=== PATIENT | male | born 1965 | race Caucasian/White ===

== ENCOUNTER → 2019-11-16 | Outpatient (CLI) | payer BC ==
--- NOTE | 2019-11-16 17:18 | KCIC ---
EXAM: MRI Lumbar Spine without IV contrast INDICATION: Lumbosacral neuritis. Patient has low back pain with right leg pain, numbness and tingling for the past 3 1/2 weeks with no known injury.. TECHNIQUE: Sagittal T1-w, T2-w, and STIR images, and axial T1-w and T2-w images of the lumbar spine. COMPARISON: None FINDINGS: The lowest fully formed disc is referred to as the L5-S1 level. ALIGNMENT: Alignment is within normal limits. OSSEOUS: No evidence of fracture or bone destruction. Marrow signal is within normal limits. CONUS MEDULLARIS & CAUDA EQUINA: The conus medullaris is in normal position. The conus medullaris and cauda equina are intrinsically normal. SOFT TISSUES: Unremarkable. DISC LEVELS: T12-L1: Unremarkable. L1-L2: Unremarkable. L2-L3: Unremarkable. L3-L4: Diffuse disc bulge and mild bilateral facet hypertrophy results in mild flattening of the ventral thecal sac with an AP diameter of 1.0 cm. The loss of height of the disc level results in moderate bilateral foraminal narrowing and mild bilateral lateral recess narrowing. L4-L5: Diffuse disc desiccation and loss of height is present, resulting in moderate narrowing of the left neural foramen. The central canal remains patent but the right neural foramen shows a focal right foraminal and extraforaminal protrusion with tissue showing mild signal hyperintensity on the STIR sequence, intermediate signal on the T2-weighted sequence and hypointensity on T1-weighted imaging effacing the perineural fat in the right foramen. This could reflect the presence of a perineural sleeve cyst or extruded disc fragment contributing to severe narrowing of the right foramen and some mass effect on the slightly enlarged extraforaminal right L4 nerve root, best illustrated on the axial T1 weighted images 16 through 19 of series 5. L5-S1: Diffuse disc bulge with loss of height and bilateral facet hypertrophy results in moderate bilateral foraminal narrowing. The central canal remains patent. The right nerve root abuts the protruded disc in the right foramen. There is moderate to severe bilateral lateral recess narrowing. IMPRESSION: 1. Multilevel lumbar spinal degenerative spondylosis, resulting in varying degrees of predominately foraminal narrowing, most conspicuously at the right L4-L5 and L5-S1 foramina as described. 2. Recommend postcontrast imaging of the lumbar spine with thin slice images through the L4-L5 disc space to better characterize the lesion in the right L4-L5 neural foramen and help exclude a nerve sheath tumor or other diagnostic possibility as discussed. Electronically signed by: Juanita Solo MD (11/16/2019 5:15 PM) [id number]
== END | disposition home or self-care (01) ==
LOC: KCIC MRI 16:04
PROVIDERS: ATTEND Physician Assistant
DX: M51.17 Intervertebral disc disorders with radiculopathy, lumbosacral region (principal); M48.07 Spinal stenosis, lumbosacral region; M47.26 Other spondylosis with radiculopathy, lumbar region; M89.38 Hypertrophy of bone, other site
CPT/HCPCS: 72148

== ENCOUNTER → 2020-02-17 | Outpatient (CLI) | payer BC ==
[2020-02-17] VITALS (9 sets, daily range): BP systolic 105–121; BP diastolic 56–86
[~2020-02-17] VITALS: Ht 170.2 cm; Wt 83.9 kg
[~2020-02-17] MED LIST: LIDOCAINE WITH 8.4% SOD BICARB 3 ML DISP.SYRIN. IJ ONE; LIDOCAINE WITH 8.4% SOD BICARB 3 ML DISP.SYRIN. ONE; LOSA100T14 PO; LOSA1TAB22 PO; MIDAZOLAM HCL/PF 2 MG/2 ML VIAL. IV ONE; MIDAZOLAM HCL/PF 2 MG/2 ML VIAL. ONE; fentaNYL PF VIAL 100 MCG/2 ML VIAL IV ONE; fentaNYL PF VIAL 100 MCG/2 ML VIAL ONE
[2020-02-17 07:45] LABS: BASO % 0 % (0-3); EOS # 0.3 x10^3/uL (0.0-0.7); EOS % 2 % (0-3); HEMATOCRIT 48.1 % (39.0-53.0); HEMOGLOBIN 16.6 g/dL (13.0-17.5); LYMPH % 25 % (24-48); MEAN CORPUSCULAR HEMOGLOBIN 30 pg (25-35); MEAN CORPUSCULAR HGB CONC 34 g/dL (31-37); MEAN CORPUSCULAR VOLUME 87 fL (79-100); MONO # 1.4 x10^3/uL (0.0-1.1); MONO % 9 % (0-9); NEUT # 10.1 x10^3/uL (1.8-7.7); NEUT % 64 % (31-73); PLATELET COUNT 317 x10^3/uL (140-400); RED BLOOD COUNT 5.54 x10^6/uL (4.30-5.70); WHITE BLOOD COUNT 15.7 x10^3/uL (4.0-11.0)
[2020-02-17 08:10] LABS: PROTHROMBIN TIME PATIENT 12.3 SEC (11.7-14.0)
--- NOTE | 2020-02-17 10:18 | PDOC ---
MODERATE SEDATION ASSESSMENT RISKS/ALTERNATIVES Risks/Alternatives Risks and alternatives of this type of sedation and procedure discussed with: RISK/ALTERNATIVES: Patient H & P ON CHART H & P H & P on chart and reviewed for co-morbid conditions and appropriate labs. H&P ON CHART: Yes STATUS PREG STATUS ASSESSED: Yes MEDS/ALLERGIES REVIEWED Meds/Allergies Reviewed Medications and Allergies including time and route of recently administered narcotics and sedatives. MEDS/ALLERGIES REVIEWED: Yes ASA RATING ASA RATING: II AIRWAY ASSESSMENT Airway Assessment Airway patency, oral function limitations, presence of caps, crowns, dentures, partials, and ability to extend neck assessed. AIRWAY ASSESSMENT: Yes MALLAMPATI SCORE MALLAMPATI SCORE: II PRE-SEDATION ASSESSMENT PRE-SEDATION ASSESSMENT: Yes KANNAN ROSARIO MD Feb 17, 2020 10:18
--- NOTE | 2020-02-17 10:20 | NUR ---
Discharge Note: RUKHSANA SHARPE Discharge instructions and discharge home medications reviewed with Patient and a copy given. All questions have been answered and understanding verbalized. The following instructions and handouts were given: moderate sedation and post bone marrow biopsy Discontinued lines and drains: Peripheral IV intact. Patient discharged to Home or Self Care withFamily Membera Wheelchair
--- NOTE | 2020-02-17 15:36 | RAD ---
CT-guided bone marrow biopsy. 02/17/2020 1:32 PM Indication: LEUKOCYTOSIS Discussion: The risks and benefits of the procedure, including but not limited to, bleeding and infection were discussed patient. Informed consent was obtained. The patient was brought to the CT scanner and placed in the prone position. A timeout procedure was performed. High Density Finishing Operator CT imaging of the pelvis demonstrated left ilium amenable to bone marrow biopsy. The overlying soft tissues were prepped and draped using maximum sterile barrier technique. 1% lidocaine without epinephrine was administered for local anesthesia. Under intermittent CT guidance, an OncControl needle was advanced into the bone marrow of the left iliac crest. 2 Aspirates and 1 core biopsy samples were obtained. Samples were delivered to pathology was present at the time of procedure. The needle was removed and manual pressure held to achieve hemostasis. No immediate complications were identified. The procedure was performed under conscious sedation including continuous cardiopulmonary monitoring via dedicated sedation nurse. Sedation time: 20 minutes Impression: Successful CT-guided bone marrow biopsy of the left iliac crest . PQRS Compliance Statement: One or more of the following individualized dose reduction techniques were utilized for this examination: 1. Automated exposure control 2. Adjustment of the mA and/or kV according to patient size 3. Use of iterative reconstruction technique
== END ==
LOC: INTRAD 06:45
PROVIDERS: ATTEND Internal Medicine Hematology & Oncology
DX: D72.829 Elevated white blood cell count, unspecified (principal); Z79.01 Long term (current) use of anticoagulants; Z79.899 Other long term (current) drug therapy
CPT/HCPCS: 36415; 38222; 77012; 85025; 85610; 85730; 88184; 88185; 88237; J2250; J3010; J3490

== ENCOUNTER → 2020-03-05 | Outpatient (CLI) | payer BC ==
[2020-02-17 10:00] VITALS: BP 117/73
[~2020-03-05] MED LIST changes: +GADOTERATE 5 MMOL/10ML VIAL. IVP ONE; -LIDOCAINE WITH 8.4% SOD BICARB 3 ML DISP.SYRIN. IJ ONE; -LIDOCAINE WITH 8.4% SOD BICARB 3 ML DISP.SYRIN. ONE; -MIDAZOLAM HCL/PF 2 MG/2 ML VIAL. IV ONE; -MIDAZOLAM HCL/PF 2 MG/2 ML VIAL. ONE; -fentaNYL PF VIAL 100 MCG/2 ML VIAL IV ONE; -fentaNYL PF VIAL 100 MCG/2 ML VIAL ONE
--- NOTE | 2020-03-05 11:55 | KCIC ---
EXAMINATION: Magnetic resonance imaging (MRI) of the lumbar spine with and without contrast 03/05/2020 9:30 AM HISTORY: Nerve sheath tumor TECHNIQUE: Multiplanar multi-weighted MRI of the lumbar spine was performed with and without intravenous contrast using the standard lumbar spine protocol. Contrast information: Gadolinium based contrast. COMPARISON: MRI lumbar spine 11/16/2019 FINDINGS: The alignment of the lumbar spine is normal. Vertebral bodies demonstrate normal signal intensity on all sequences. There are no compression fractures. The conus medullaris terminates at the level of L1. The distal spinal cord signal intensity is normal. There is disc desiccation and mild disc height loss at L4-L5 and L5-S1. Annular fissures identified at L5-S1 with vacuum disc phenomenon . Limited views of the abdomen and pelvis show no soft tissue abnormality. The aorta is normal. No suspicious enhancement is identified. L1-L2: The disc is normal in configuration. There is no facet arthropathy. There is no neuroforaminal stenosis. There is no spinal canal stenosis. L2-L3: The disc is normal in configuration. There is no facet arthropathy. There is no neuroforaminal stenosis. There is no spinal canal stenosis. L3-L4: The disc is normal in configuration. There is no facet arthropathy. There is no neuroforaminal stenosis. There is no spinal canal stenosis. L4-L5: Mild disc bulge asymmetric to the right with right far lateral disc protrusion, stable. Mild facet arthropathy. Mild to moderate bilateral neuroforaminal stenosis. No significant spinal canal stenosis. L5-S1: Disc bulge with central disc protrusion. There is mild facet arthropathy. There is moderate neuroforaminal stenosis. There is no spinal canal stenosis. IMPRESSION: Mild degenerative changes of the lumbar spine as described in detail above. No suspicious peripheral nerve sheath tumor identified on provided images. Findings at L4-L5 vertebral level most favor a right far lateral disc protrusion which could affect the exited nerve. Electronically signed by: Sienna Izquierdo MD (03/05/2020 11:53 AM) [facility]
== END | disposition home or self-care (01) ==
LOC: KCIC MRI 09:09
PROVIDERS: ATTEND Psychiatry & Neurology Neurology with Special Qualifications in Child Neurology
DX: M47.817 Spondylosis without myelopathy or radiculopathy, lumbosacral region (principal); M54.16 Radiculopathy, lumbar region; D49.2 Neoplasm of unspecified behavior of bone, soft tissue, and skin; Q05.7 Lumbar spina bifida without hydrocephalus; M99.83 Other biomechanical lesions of lumbar region; M51.27 Other intervertebral disc displacement, lumbosacral region
CPT/HCPCS: 72158; A9575

== ENCOUNTER 2020-06-30 23:11 | Inpatient (IN) | payer BC ==
[~2020-06-30] VITALS: Ht 170.2 cm; Wt 96.1 kg
[~2020-06-30 23:11] MED LIST changes: -GADOTERATE 5 MMOL/10ML VIAL. IVP ONE
[2020-06-30 23:30] VITALS: BP 117/73
[2020-07-01] MEDS ORDERED: ONDANSETRON PF 4 MG/2 ML VIAL. IVP PRN
[2020-07-01] MEDS ORDERED: ACETAMINOPHEN 325 MG TABLET. PO PRN
[2020-07-01] MEDS ORDERED: MAG HYDROX/ALUMINUM HYD/SIMETH 30 ML ORAL.SUSP PO PRN
[2020-07-01] MEDS ORDERED: BISACODYL 10 MG SUPP.RECT. PR PRN
[2020-07-01] MEDS ORDERED: traMADol 50 MG TABLET PO PRN
[2020-07-01] MEDS ORDERED: IBUPROFEN 400 MG TABLET. PO PRN
[2020-07-01] MEDS ORDERED: MAGNESIUM HYDROXIDE 2,400 MG/30 ML ORAL.SUSP. PO PRN
[2020-07-01] MEDS ORDERED: MORPHINE SULFATE 2 MG/ML VIAL. IV PRN ×2
[2020-07-01] MEDS ORDERED: CALCIUM CARBONATE 500 MG TAB.CHEW PO PRN
[2020-07-01] MEDS ORDERED: ENOXAPARIN 40 MG/0.4 ML SYRINGE. SQ SCH
[2020-07-01] MEDS ORDERED: ZOLPIDEM 5 MG TABLET. PO PRN
[2020-07-01] MEDS ORDERED: fentaNYL PF VIAL 100 MCG/2 ML VIAL IVP PRN
[2020-07-01] MEDS ORDERED: LABETALOL 20 MG/4 ML DISP.SYRIN. IVP PRN (00:15)
[2020-07-01] MEDS ORDERED: ENALAPRILAT 1.25 MG/ML VIAL. IVP PRN (00:15)
[2020-07-01 02:09] LABS: BASO # 0.1 x10^3/uL (0.0-0.2); BASO % 1 % (0-3); EOS # 0.1 x10^3/uL (0.0-0.7); EOS % 1 % (0-3); HEMATOCRIT 41.3 % (39.0-53.0); HEMOGLOBIN 13.9 g/dL (13.0-17.5); LYMPH # 4.7 x10^3/uL (1.0-4.8); LYMPH % 27 % (24-48); MEAN CORPUSCULAR HEMOGLOBIN 29 pg (25-35); MEAN CORPUSCULAR HGB CONC 34 g/dL (31-37); MEAN CORPUSCULAR VOLUME 87 fL (79-100); MONO % 6 % (0-9); NEUT # 11.3 x10^3/uL (1.8-7.7); NEUT % 66 % (31-73); PLATELET COUNT 258 x10^3/uL (140-400); RED BLOOD COUNT 4.76 x10^6/uL (4.30-5.70); RED CELL DISTRIBUTION WIDTH 13.9 % (11.5-14.5); WHITE BLOOD COUNT 17.2 x10^3/uL (4.0-11.0)
[2020-07-01 02:35] LABS: ALBUMIN 3.3 g/dL (3.4-5.0); ALBUMIN/GLOBULIN RATIO 1.1 (1.0-1.7); CALCIUM 8.6 mg/dL (8.5-10.1); CREATININE 1.3 mg/dL (0.7-1.3); GFR 57.5; POTASSIUM 3.1 mmol/L (3.5-5.1); TOTAL BILIRUBIN 0.3 mg/dL (0.2-1.0); TOTAL PROTEIN 6.3 g/dL (6.4-8.2)
[2020-07-01 03:00] VITALS: BP 107/77
[2020-07-01] MEDS: HYDROCORTISONE 1% TOPICAL CREAM 30GM TUBE. TP PRN ×2 (04:14→18:27)
[2020-07-01 06:05] LABS: BASO # 0.2 x10^3/uL (0.0-0.2); BASO % 1 % (0-3); EOS # 0.2 x10^3/uL (0.0-0.7); EOS % 1 % (0-3); HEMATOCRIT 42.3 % (39.0-53.0); HEMOGLOBIN 14.2 g/dL (13.0-17.5); LYMPH # 5.2 x10^3/uL (1.0-4.8); LYMPH % 32 % (24-48); MEAN CORPUSCULAR HEMOGLOBIN 29 pg (25-35); MEAN CORPUSCULAR HGB CONC 34 g/dL (31-37); MEAN CORPUSCULAR VOLUME 87 fL (79-100); MONO % 6 % (0-9); NEUT # 9.9 x10^3/uL (1.8-7.7); NEUT % 60 % (31-73); PLATELET COUNT 258 x10^3/uL (140-400); RED BLOOD COUNT 4.88 x10^6/uL (4.30-5.70); RED CELL DISTRIBUTION WIDTH 14.2 % (11.5-14.5); WHITE BLOOD COUNT 16.5 x10^3/uL (4.0-11.0)
[2020-07-01 06:17] LABS: CALCIUM 8.4 mg/dL (8.5-10.1); CREATININE 1.2 mg/dL (0.7-1.3); GFR 63.1; POTASSIUM 3.3 mmol/L (3.5-5.1)
[2020-07-01 06:24] LABS: CHOLESTEROL/HDL RATIO 4.7
[2020-07-01] MEDS ORDERED: IV NORMAL SALINE 1000ML BAG 1,000 ML IV ONE (06:30)
[2020-07-01] MEDS ORDERED: HEPARIN for IV BOLUS 10,000 UNIT/10 ML VIAL. IV PRN (06:45)
[2020-07-01] MEDS ORDERED: PANT40TA77 PO (06:56)
[2020-07-01 07:00] VITALS: BP 133/85
--- NOTE | 2020-07-01 07:28 | PDOC1 ---
History and Physical Date of Admission Date of Admission DATE: 07/01/20 TIME: 07:28 Identification/Chief Complaint Chief Complaint Chest pain Source Source: Patient History of Present Illness History of Present Illness Mr Bradley is a 54 yo M w/ PMHx smoker, obesity who presents for substernal chest pain. Onset was 06/30 in the morning while at rest without any known provocation/inciting event and/or trauma. Nothing known makes better or worse. Pain is substernal, 9 out of 10 in severity, and radiates to left jaw. Describes it as a dull crushing pressure. Patient reports intermittent occurrences of a different type of chest pain for past 3 months. He has been getting this worked up in outpatient setting with primary care physician and recently had a EGD 06/29/2020 for which he tested negative for Covid and ultimately had a negative EGD. But did have PUD treated 1 month prior with h. pylori testing positive. He has never had a cardiac stress test previously. He smokes, is being treated for GERD and hypertension, and has a significant family history of cardiac disease. Patient does disclose that in the past 6 months he has gained approximately 25 to 30 pounds. He has had increased dyspnea with exertion and has been sleeping propped up recently as he often feels that he is gasping for air in the middle of the night. Admits diaphoresis, lightheadedness, chills, shortness of breath during chest pain episodes, intermittent left jaw and upper extremity numbness, nausea, and palpitations. Denies fever, falls, abdominal pain, vomiting or diarrhea, changes in bladder or bowel function, no hemoptysis, no excessive alcohol or any illicit drug use, no long distance travel. 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 EKG at 1825 interpreted by vt rate [address] depressions in lead I, V4, implying inferior and lateral strain. Initial troponin at 1705 was 2.040, second troponin at 0115 was 11.68 IV access obtained, x1 sublingual nitro administered with significant relief of pain decreasing from 9/10 in severity to 2/10 in severity 324 mg aspirin given, 1 mg per kilogram Lovenox and and 40 mg IV Lasix administration prior to transfer to [place]. Given 1 g Rocephin and 500 mg azithromycin for suspected pulmonary infection Seen bedside at [facility] after transfer from [place]. He is still having some chest pain, feels it is substernal 10/10. Past Surgical History Past Surgical History: No pertinent history Family History Family History: Coronary Artery Disease (Mother) Family History: Parent (Father - DM, ESRD; Mother - CAD) Social History Smoke: 1 pack per day ALCOHOL: rare Drugs: None Current Medications Current Medications Current Medications Azithromycin (Zithromax) 250 mg DAILY PO ; Start 07/01/20 at 09:00; Stop 07/04/20 at 09:00 Ceftriaxone Sodium (Rocephin) 1 gm Q24H IVP ; Start 07/01/20 at 09:00; Stop 07/04/20 at 09:00 Tramadol HCl (Ultram) 50 mg PRN Q6HRS PRN PO PAIN; Start 07/01/20 at 00:00 Ondansetron HCl (Zofran) 4 mg PRN Q6HRS PRN IVP NAUSEA/VOMITING; Start 07/01/20 at 00:00 Al Hydroxide/Mg Hydroxide (Mylanta Plus Xs) 30 ml PRN Q3HRS PRN PO HEARTBURN / GAS; Start 07/01/20 at 00:00 Calcium Carbonate/ Glycine (Tums) 500 mg PRN Q3HRS PRN PO UPSET STOMACH; Start 07/01/20 at 00:00 Zolpidem Tartrate (Ambien) 5 mg PRN QHS PRN PO INSOMNIA, MAY REPEAT IN 1HR; Start 07/01/20 at 00:00 Morphine Sulfate (Morphine Sulfate) 1 mg PRN Q1HR PRN IV PAIN; Start 07/01/20 at 00:00 Morphine Sulfate (Morphine Sulfate) 2 mg PRN Q1HR PRN IV PAIN; Start 07/01/20 at 00:00 Acetaminophen (Tylenol) 650 mg PRN Q6HRS PRN PO Headaches, Temp > 101.5F; Start 07/01/20 at 00:00 Ibuprofen (Motrin) 400 mg PRN Q6HRS PRN PO MILD PAIN 1-3; Start 07/01/20 at 00:00 Magnesium Hydroxide (Milk Of Magnesia) 2,400 mg PRN Q12HR PRN PO CONSTIPATION; Start 07/01/20 at 00:00 Bisacodyl (Dulcolax Supp) 10 mg PRN DAILY PRN GA CONSTIPATION; Start 07/01/20 at 00:00 Enoxaparin Sodium (Lovenox 40mg Syringe) 40 mg Q24H SQ Last administered on 07/01/20at 01:25; Start 07/01/20 at 00:00; Stop 07/01/20 at 06:21; Status DC Fentanyl Citrate (Fentanyl 2ml Vial) 50 mcg PRN Q2HR PRN IVP PAIN; Start 07/01/20 at 00:00 Non-Formulary Medication (Losartan/ Hydrochlorothiazide (Losartan-Hctz 100-25 Mg Tab)) 1 tab DAILY PO ; Start 07/01/20 at 09:00; Status UNV Labetalol HCl (Normodyne Iv Push) 20 mg PRN Q2HR PRN IVP HYPERTENSION; Start 07/01/20 at 00:15 Losartan Potassium (Cozaar) 100 mg DAILY PO ; Start 07/01/20 at 09:00 Enalaprilat (Vasotec Inj) 1.25 mg PRN Q6HRS PRN IVP HYPERTENSION; Start 07/01/20 at 00:15 Hydrochlorothiazide (Hydrodiuril) 25 mg DAILY PO ; Start 07/01/20 at 09:00 Hydrocortisone (Cortaid) 1 flakito TID TP ; Start 07/01/20 at 09:00; Stop 07/01/20 at 02:45; Status DC Hydrocortisone (Cortaid) 1 flakito PRN TID PRN TP ITCHING Last administered on 07/01/20at 04:14; Start 07/01/20 at 02:45 Enoxaparin Sodium (Lovenox 100mg Syringe) 100 mg Q12HR SQ ; Start 07/01/20 at 09:00; Stop 07/01/20 at 06:52; Status DC Sodium Chloride 1,000 ml @ 1,000 mls/hr 1X ONCE IV ; Start 07/01/20 at 06:30; Stop 07/01/20 at 07:29 Heparin Sodium/ Dextrose 250 ml @ 0 mls/hr CONT PRN IV PER PROTOCOL; Start 07/01/20 at 07:45 Heparin Sodium (Porcine) (Heparin Sodium) 2,500 unit PRN Q6HRS PRN IV FOR UFH LEVEL LESS THAN 0.2; Start 07/01/20 at 06:45 Active Scripts Active Reported Pantoprazole Sodium (Pantoprazole Sodium) 40 Mg Tablet.dr 40 Mg PO BIDAC Losartan-Hctz 100-25 Mg Tab (Losartan/Hydrochlorothiazide) 1 Each Tablet 1 Tab PO DAILY Allergies Allergies: Coded Allergies: No Known Drug Allergies (Unverified , 02/17/20) ROS General: No: Chills, Night Sweats, Fatigue, Malaise, Appetite, Other PSYCHOLOGICAL ROS: No: Anxiety, Behavioral Disorder, Concentration difficultie, Decreased libido, Depression, Disorientation, Hallucinations, Hostility, Irritablity, Memory difficulties, Mood Swings, Obsessive thoughts, Physical abuse, Sexual abuse, Sleep disturbances, Suicidal ideation, Other Eyes: No Blurry vision, No Decreased vision, No Double vision, No Dry eyes, No Excessive tearing, No Eye Pain, No Itchy Eyes, No Loss of vision, No Photophobia, No Scotomata, No Uses contacts, No Uses glasses, No Other HEENT: No: Heacaches, Visual Changes, Hearing change, Nasal congestion, Nasal discharge, Oral lesions, Sinus pain, Sore Throat, Epistaxis, Sneezing, Snoring, Tinnitus, Vertigo, Vocal changes, Other ALLERGY AND IMMUNOLOGY: No: Hives, Insect Bite Sensitivity, Itchy/Watery Eyes, Nasal Congestion, Post Nasal Drip, Seasonal Allergies, Other Hematological and Lymphatic: No: Bleeding Problems, Blood Clots, Blood Transfusions, Brusing, Night Sweats, Pallor, Swollen Lymph Nodes, Other ENDOCRINE: No: Breast Changes, Galactorrhea, Hair Pattern Changes, Hot Flashes, Malaise/lethargy, Mood Swings, Palpitations, Polydipsia/polyuria, Skin Changes, Temperature Intolerance, Unexpected Weight Changes, Other Breast: No New/Changing Breast Lumps, No Nipple changes, No Nipple discharge, No Other Cardiovascular: yes Chest Pain; No Palpitations, No Orthopnea, No Paroxysmal Noc. Dyspnea, No Edema, No Lt Headedness, No Other Gastrointestinal: Yes Nausea; No Vomiting, No Abdominal Pain, No Diarrhea, No Constipation, No Melena, No Hematochezia, No Other Genitourinary: No Dysuria, No Frequency, No Incontinence, No Hematuria, No Retention, No Discharge, No Urgency, No Pain, No Flank Pain, No Other, No , No , No , No , No , No , No Musculoskeletal: No Gait Disturbance, No Joint Pain, No Joint Stiffness, No Joint Swelling, No Muscle Pain, No Muscular Weakness, No Pain In:, No Swelling In:, No Other Neurological: No Behavorial Changes, No Bowel/Bladder ControlChng, No Confusion, No Dizziness, No Gait Disturbance, No Headaches, No Impaired Coord/balance, No Memory Loss, No Numbness/Tingling, No Seizures, No Speech Problems, No Tremors, No Visual Changes, No Weakness, No Other Skin: No Dry Skin, No Eczema, No Hair Changes, No Lumps, No Mole Changes, No Mottling, No Nail Changes, No Pruritus, No Rash, No Skin Lesion Changes, No Other, No Acne Physical Exam General: Alert, Oriented X3, Cooperative, mild distress HEENT: Atraumatic, PERRLA, EOMI, Mucous membr. moist/pink Lungs: Other (Scattered wheezes) Heart: S1S2, RRR, no thrills, no rubs, no gallops, no murmurs Abdomen: Normal bowel sounds, Soft, No tenderness, No hepatosplenomegaly, No masses Rectal Exam: not examined Extremities: No clubbing, No cyanosis, No edema, Normal pulses, No tenderness/swelling Skin: No rashes, No breakdown, No significant lesion Neuro: Normal gait, Normal speech, Strength at 5/5 X4 ext, Normal tone, Sensation intact, Cranial nerves 3-12 NL, Reflexes 2+ Psych/Mental Status: Mental status NL, Mood NL Vitals Vitals Vital Signs Date Time Temp Pulse Resp B/P (MAP) Pulse Ox O2 Delivery O2 Flow Rate FiO2 07/01/20 03:00 97.6 83 17 107/77 (87) 97 97.6 06/30/20 23:45 Room Air Labs Labs Laboratory Tests Test 07/01/20 01:15 07/01/20 04:00 07/01/20 04:10 07/01/20 05:50 White Blood Count 17.2 x10^3/uL (4.0-11.0) 16.5 x10^3/uL (4.0-11.0) Red Blood Count 4.76 x10^6/uL (4.30-5.70) 4.88 x10^6/uL (4.30-5.70) Hemoglobin 13.9 g/dL (13.0-17.5) 14.2 g/dL (13.0-17.5) Hematocrit 41.3 % (39.0-53.0) 42.3 % (39.0-53.0) Mean Corpuscular Volume 87 fL (79-100) 87 fL (79-100) Mean Corpuscular Hemoglobin 29 pg (25-35) 29 pg (25-35) Mean Corpuscular Hemoglobin Concent 34 g/dL (31-37) 34 g/dL (31-37) Red Cell Distribution Width 13.9 % (11.5-14.5) 14.2 % (11.5-14.5) Platelet Count 258 x10^3/uL (140-400) 258 x10^3/uL (140-400) Neutrophils (%) (Auto) 66 % (31-73) 60 % (31-73) Lymphocytes (%) (Auto) 27 % (24-48) 32 % (24-48) Monocytes (%) (Auto) 6 % (0-9) 6 % (0-9) Eosinophils (%) (Auto) 1 % (0-3) 1 % (0-3) Basophils (%) (Auto) 1 % (0-3) 1 % (0-3) Neutrophils # (Auto) 11.3 x10^3/uL (1.8-7.7) 9.9 x10^3/uL (1.8-7.7) Lymphocytes # (Auto) 4.7 x10^3/uL (1.0-4.8) 5.2 x10^3/uL (1.0-4.8) Monocytes # (Auto) 1.0 x10^3/uL (0.0-1.1) 1.0 x10^3/uL (0.0-1.1) Eosinophils # (Auto) 0.1 x10^3/uL (0.0-0.7) 0.2 x10^3/uL (0.0-0.7) Basophils # (Auto) 0.1 x10^3/uL (0.0-0.2) 0.2 x10^3/uL (0.0-0.2) Sodium Level 146 mmol/L (136-145) 146 mmol/L (136-145) Potassium Level 3.1 mmol/L (3.5-5.1) 3.3 mmol/L (3.5-5.1) Chloride Level 106 mmol/L (98-107) 107 mmol/L (98-107) Carbon Dioxide Level 29 mmol/L (21-32) 31 mmol/L (21-32) Anion Gap 11 (6-14) 8 (6-14) Blood Urea Nitrogen 19 mg/dL (8-26) 18 mg/dL (8-26) Creatinine 1.3 mg/dL (0.7-1.3) 1.2 mg/dL (0.7-1.3) Estimated GFR (Cockcroft-Gault) 57.5 63.1 BUN/Creatinine Ratio 15 (6-20) Glucose Level 167 mg/dL (70-99) 100 mg/dL (70-99) Lactic Acid Level 2.5 mmol/L (0.4-2.0) 1.2 mmol/L (0.4-2.0) Calcium Level 8.6 mg/dL (8.5-10.1) 8.4 mg/dL (8.5-10.1) Total Bilirubin 0.3 mg/dL (0.2-1.0) Aspartate Amino Transf (AST/SGOT) 71 U/L (15-37) Alanine Aminotransferase (ALT/SGPT) 79 U/L (16-63) Alkaline Phosphatase 37 U/L (46-116) Troponin I Quantitative 11.678 ng/mL (0.000-0.055) 12.670 ng/mL (0.000-0.055) 13.088 ng/mL (0.000-0.055) RT-Pmx-Y-Type Natriuretic Peptide 8954 pg/mL (0-124) Total Protein 6.3 g/dL (6.4-8.2) Albumin 3.3 g/dL (3.4-5.0) Albumin/Globulin Ratio 1.1 (1.0-1.7) Procalcitonin < 0.10 ng/mL (0.00-0.10) SARS-CoV-2 Antigen (Rapid) Negative (NEGATIVE) Triglycerides Level 141 mg/dL (0-150) Cholesterol Level 199 mg/dL (0-200) LDL Cholesterol, Calculated 129 mg/dL (0-100) VLDL Cholesterol, Calculated 28 mg/dL (0-40) Non-HDL Cholesterol Calculated 157 mg/dL (0-129) HDL Cholesterol 42 mg/dL (40-60) Cholesterol/HDL Ratio 4.7 Laboratory Tests Test 07/01/20 01:15 07/01/20 04:00 07/01/20 04:10 07/01/20 05:50 White Blood Count 17.2 x10^3/uL (4.0-11.0) 16.5 x10^3/uL (4.0-11.0) Red Blood Count 4.76 x10^6/uL (4.30-5.70) 4.88 x10^6/uL (4.30-5.70) Hemoglobin 13.9 g/dL (13.0-17.5) 14.2 g/dL (13.0-17.5) Hematocrit 41.3 % (39.0-53.0) 42.3 % (39.0-53.0) Mean Corpuscular Volume 87 fL (79-100) 87 fL (79-100) Mean Corpuscular Hemoglobin 29 pg (25-35) 29 pg (25-35) Mean Corpuscular Hemoglobin Concent 34 g/dL (31-37) 34 g/dL (31-37) Red Cell Distribution Width 13.9 % (11.5-14.5) 14.2 % (11.5-14.5) Platelet Count 258 x10^3/uL (140-400) 258 x10^3/uL (140-400) Neutrophils (%) (Auto) 66 % (31-73) 60 % (31-73) Lymphocytes (%) (Auto) 27 % (24-48) 32 % (24-48) Monocytes (%) (Auto) 6 % (0-9) 6 % (0-9) Eosinophils (%) (Auto) 1 % (0-3) 1 % (0-3) Basophils (%) (Auto) 1 % (0-3) 1 % (0-3) Neutrophils # (Auto) 11.3 x10^3/uL (1.8-7.7) 9.9 x10^3/uL (1.8-7.7) Lymphocytes # (Auto) 4.7 x10^3/uL (1.0-4.8) 5.2 x10^3/uL (1.0-4.8) Monocytes # (Auto) 1.0 x10^3/uL (0.0-1.1) 1.0 x10^3/uL (0.0-1.1) Eosinophils # (Auto) 0.1 x10^3/uL (0.0-0.7) 0.2 x10^3/uL (0.0-0.7) Basophils # (Auto) 0.1 x10^3/uL (0.0-0.2) 0.2 x10^3/uL (0.0-0.2) Sodium Level 146 mmol/L (136-145) 146 mmol/L (136-145) Potassium Level 3.1 mmol/L (3.5-5.1) 3.3 mmol/L (3.5-5.1) Chloride Level 106 mmol/L (98-107) 107 mmol/L (98-107) Carbon Dioxide Level 29 mmol/L (21-32) 31 mmol/L (21-32) Anion Gap 11 (6-14) 8 (6-14) Blood Urea Nitrogen 19 mg/dL (8-26) 18 mg/dL (8-26) Creatinine 1.3 mg/dL (0.7-1.3) 1.2 mg/dL (0.7-1.3) Estimated GFR (Cockcroft-Gault) 57.5 63.1 BUN/Creatinine Ratio 15 (6-20) Glucose Level 167 mg/dL (70-99) 100 mg/dL (70-99) Lactic Acid Level 2.5 mmol/L (0.4-2.0) 1.2 mmol/L (0.4-2.0) Calcium Level 8.6 mg/dL (8.5-10.1) 8.4 mg/dL (8.5-10.1) Total Bilirubin 0.3 mg/dL (0.2-1.0) Aspartate Amino Transf (AST/SGOT) 71 U/L (15-37) Alanine Aminotransferase (ALT/SGPT) 79 U/L (16-63) Alkaline Phosphatase 37 U/L (46-116) Troponin I Quantitative 11.678 ng/mL (0.000-0.055) 12.670 ng/mL (0.000-0.055) 13.088 ng/mL (0.000-0.055) TP-Ypv-K-Type Natriuretic Peptide 8954 pg/mL (0-124) Total Protein 6.3 g/dL (6.4-8.2) Albumin 3.3 g/dL (3.4-5.0) Albumin/Globulin Ratio 1.1 (1.0-1.7) Procalcitonin < 0.10 ng/mL (0.00-0.10) SARS-CoV-2 Antigen (Rapid) Negative (NEGATIVE) Triglycerides Level 141 mg/dL (0-150) Cholesterol Level 199 mg/dL (0-200) LDL Cholesterol, Calculated 129 mg/dL (0-100) VLDL Cholesterol, Calculated 28 mg/dL (0-40) Non-HDL Cholesterol Calculated 157 mg/dL (0-129) HDL Cholesterol 42 mg/dL (40-60) Cholesterol/HDL Ratio 4.7 Images Images CXR: The cardiac silhouette is unremarkable. Faint patchy groundglass airspace opacities identified in the bilateral lungs likely infiltrates or atelectasis or atypical pneumonia. IMPRESSION: Faint patchy groundglass airspace opacities identified in the bila teral lungs likely infiltrates or atelectasis or atypical pneumonia. VTE Prophylaxis Ordered VTE Prophylaxis Devices: Yes VTE Pharmacological Prophylaxi: Yes Assessment/Plan Assessment/Plan A/P: NSTEMI (non-ST elevated myocardial infarction) - heparin GTT after therapeutic lovenox overnight. slight ST depressions in lead I, V4, implying inferior and lateral strain. Trop >10. Cardiology consulted Acute respiratory distress - seems to be related to RI. No O2 requirements, no risk factors for PE. Rapid COVID 19 negative Abnormal CXR - given smoking history likely COPD, possibly ILD component with BNP 8954 and ok renal function likely acute CHF from acute RI LORI - likely vasomotor nephropathy from acute coronary syndrome, will limit IVF. Monitor, no nephrotoxic meds Hypertension - Hold HCTZ for hypokalemia, hold ARB for LORI Tobacco abuse - counseled on cessation Obesity - counseled on lifestyle modification Leukocytosis - unlikely bacterial pneumonia, this seems stress induced from likely RI GERD - cont PPI PUD - recent treatment for h. pylori FEN - NPO PPX - heparin GTT FULL CODE Dispo - CVC Justifications for Admission Other Justification SHAILA RODRIGUEZ MD Jul 01, 2020 07:28
[2020-07-01] MEDS ORDERED: HEPARIN 25,000UTS/250ML PREMIX 250 ML IV PRN (07:45)
[2020-07-01] MEDS ORDERED: LOSARTAN POTASSIUM 50 MG TABLET. PO SCH (09:00)
[2020-07-01] MEDS ORDERED: hydroCHLOROthiazide 25 MG TABLET PO SCH (09:00)
[2020-07-01] MEDS ORDERED: HYDROCORTISONE 1% TOPICAL CREAM 30GM TUBE. TP SCH (09:00)
[2020-07-01] MEDS ORDERED: NON FORMULARY ITEM (Losartan/Hydrochlorothiazide (Losartan-Hctz 100-25 Mg Tab) 1 TAB) PO SCH (09:00)
[2020-07-01 11:00] VITALS: BP 120/81
--- NOTE | 2020-07-01 11:06 | RAD ---
AP chest x-ray HISTORY: Pneumonia. FINDINGS: Comparison is made to chest x-ray June 30, 2020. Heart size normal. Mediastinal silhouette is normal. No pneumothorax. No pleural effusions. Coarse interstitial markings at the perihilar lungs and lung bases are stable. Bones unremarkable. IMPRESSION: Stable pulmonary interstitial infiltrates may indicate atypical infection including viral pneumonitis or interstitial lung disease. Electronically signed by: Jakub Dietz MD (07/01/2020 11:03 AM) [id number]
[2020-07-01] MEDS: AZITHROMYCIN 250 MG TABLET. PO SCH (11:41)
[2020-07-01] MEDS: cefTRIAXone IV Push 1 GM VIAL. IVP SCH (11:42)
[2020-07-01] MEDS ORDERED: POTASSIUM BICARB 10 MEQ EFFERVESCENT TABLET. PO ONE (11:45)
[2020-07-01 15:00] VITALS: BP 123/76
[2020-07-01 19:00] VITALS: BP 122/80
[2020-07-01] MEDS: LACTOBACILLUS RHAMNOSUS GG 1 CAPSULE. PO SCH (21:50)
[2020-07-01 23:04] VITALS: BP 144/91
[2020-07-02] VITALS (16 sets, daily range): BP systolic 112–145; BP diastolic 66–91
[2020-07-02 04:51] LABS: BASO # 0.1 x10^3/uL (0.0-0.2); BASO % 1 % (0-3); EOS # 0.3 x10^3/uL (0.0-0.7); EOS % 3 % (0-3); HEMATOCRIT 39.8 % (39.0-53.0); HEMOGLOBIN 13.4 g/dL (13.0-17.5); LYMPH # 4.5 x10^3/uL (1.0-4.8); LYMPH % 39 % (24-48); MEAN CORPUSCULAR HEMOGLOBIN 30 pg (25-35); MEAN CORPUSCULAR HGB CONC 34 g/dL (31-37); MEAN CORPUSCULAR VOLUME 87 fL (79-100); MONO # 0.9 x10^3/uL (0.0-1.1); MONO % 7 % (0-9); NEUT % 51 % (31-73); PLATELET COUNT 251 x10^3/uL (140-400); RED BLOOD COUNT 4.55 x10^6/uL (4.30-5.70); RED CELL DISTRIBUTION WIDTH 14.2 % (11.5-14.5); WHITE BLOOD COUNT 11.8 x10^3/uL (4.0-11.0)
[2020-07-02 05:32] LABS: CALCIUM 8.2 mg/dL (8.5-10.1); CREATININE 1.1 mg/dL (0.7-1.3); GFR 69.8; POTASSIUM 3.5 mmol/L (3.5-5.1)
[2020-07-02] MEDS ORDERED: LIDOCAINE 1% PF 2 ML VIAL. ONE (07:52)
[2020-07-02] MEDS ORDERED: IOHEXOL 300 MG/ML 100ML VIAL. ONE (07:53)
[2020-07-02] MEDS ORDERED: HEPARIN for ARTERIAL LINE 1,500 ML ONE (07:53)
[2020-07-02] MEDS: IV NORMAL SALINE 1000ML BAG 1,000 ML IV SCH (08:39)
[2020-07-02] MEDS: cefTRIAXone IV Push 1 GM VIAL. IVP SCH (08:39)
--- NOTE | 2020-07-02 09:19 | PDOC2 ---
CONSULT Date of Consult Date of Consult Patient seen and examined on 07/01/2020. Initial consult note lost. DATE: 07/02/20 TIME: 09:14 Reason for Consult Reason for Consult: Non-ST elevated myocardial infarction. Referring Physician Referring Physician: Dr. Pizarro Identification/Chief Complaint Chief Complaint Chest pain Source Source: Chart review, Patient History of Present Illness Reason for Visit: The patient is a 54-year-old male who initially presented to the [facility] emergency room with episodes of chest discomfort. He states he has been having discomfort occasion for the last several months but his new pain was more severe and more constant. Initial treatment with a sublingual nitroglycerin at home helped relieve the pain. His EKG showed sinus rhythm with nonspecific ST-T wave changes but no findings of an acute ST elevated myocardial infarction. Initial troponin was 2.0. Patient was anticoagulated and transferred to [facility]. Overnight the patient's pain has resolved by his report this morning. He has been changed to heparin IV. Troponin has peaked at 13.08. The patient's EK G remains basically unchanged. He does have a history of peptic ulcer disease. He has had been having a work-up for epigastric discomfort and a reportedly normal EGD several days ago. He is now resting comfortably in bed. He has a history of tobacco abuse and hypertension. Past Medical History Cardiovascular: HTN Pulmonary: Bronchitis GI: GERD Past Surgical History Past Surgical History: No pertinent history Family History Family History: Coronary Artery Disease (Mother), Diabetes Social History Social History: Parent (Father - DM, ESRD; Mother - CAD) 1 pack per day ALCOHOL: rare Drugs: None Current Medications Current Medications Current Medications Azithromycin (Zithromax) 250 mg DAILY PO Last administered on 07/01/20at 11:41; Start 07/01/20 at 09:00; Stop 07/04/20 at 09:00 Ceftriaxone Sodium (Rocephin) 1 gm Q24H IVP Last administered on 07/02/20at 08:39; Start 07/01/20 at 09:00; Stop 07/04/20 at 09:00 Tramadol HCl (Ultram) 50 mg PRN Q6HRS PRN PO MODERATE PAIN; Start 07/01/20 at 00:00 Ondansetron HCl (Zofran) 4 mg PRN Q6HRS PRN IVP NAUSEA/VOMITING; Start 07/01/20 at 00:00 Al Hydroxide/Mg Hydroxide (Mylanta Plus Xs) 30 ml PRN Q3HRS PRN PO HEARTBURN / GAS; Start 07/01/20 at 00:00 Calcium Carbonate/ Glycine (Tums) 500 mg PRN Q3HRS PRN PO UPSET STOMACH; Start 07/01/20 at 00:00 Zolpidem Tartrate (Ambien) 5 mg PRN QHS PRN PO INSOMNIA, MAY REPEAT IN 1HR; Start 07/01/20 at 00:00 Morphine Sulfate (Morphine Sulfate) 1 mg PRN Q1HR PRN IV PAIN; Start 07/01/20 at 00:00 Morphine Sulfate (Morphine Sulfate) 2 mg PRN Q1HR PRN IV PAIN; Start 07/01/20 at 00:00 Acetaminophen (Tylenol) 650 mg PRN Q6HRS PRN PO Headaches, Temp > 101.5F; Start 07/01/20 at 00:00 Ibuprofen (Motrin) 400 mg PRN Q6HRS PRN PO MILD PAIN 1-3; Start 07/01/20 at 00:00; Status Hold Magnesium Hydroxide (Milk Of Magnesia) 2,400 mg PRN Q12HR PRN PO CONSTIPATION; Start 07/01/20 at 00:00 Bisacodyl (Dulcolax Supp) 10 mg PRN DAILY PRN [place] CONSTIPATION; Start 07/01/20 at 00:00 Enoxaparin Sodium (Lovenox 40mg Syringe) 40 mg Q24H SQ Last administered on 07/01/20at 01:25; Start 07/01/20 at 00:00; Stop 07/01/20 at 06:21; Status DC Fentanyl Citrate (Fentanyl 2ml Vial) 50 mcg PRN Q2HR PRN IVP PAIN; Start 07/01/20 at 00:00 Non-Formulary Medication (Losartan/ Hydrochlorothiazide (Losartan-Hctz 100-25 Mg Tab)) 1 tab DAILY PO ; Start 07/01/20 at 09:00; Status UNV Labetalol HCl (Normodyne Iv Push) 20 mg PRN Q2HR PRN IVP HYPERTENSION; Start 07/01/20 at 00:15 Losartan Potassium (Cozaar) 100 mg DAILY PO ; Start 07/01/20 at 09:00; Status Hold Enalaprilat (Vasotec Inj) 1.25 mg PRN Q6HRS PRN IVP HYPERTENSION; Start 07/01/20 at 00:15 Hydrochlorothiazide (Hydrodiuril) 25 mg DAILY PO ; Start 07/01/20 at 09:00; Status Hold Hydrocortisone (Cortaid) 1 flakito TID TP ; Start 07/01/20 at 09:00; Stop 07/01/20 at 02:45; Status DC Hydrocortisone (Cortaid) 1 flakito PRN TID PRN TP ITCHING Last administered on 07/01/20at 18:27; Start 07/01/20 at 02:45 Enoxaparin Sodium (Lovenox 100mg Syringe) 100 mg Q12HR SQ ; Start 07/01/20 at 09:00; Stop 07/01/20 at 06:52; Status DC Sodium Chloride 1,000 ml @ 1,000 mls/hr 1X ONCE IV Last administered on 07/01/20at 13:36; Start 07/01/20 at 06:30; Stop 07/01/20 at 07:29; Status DC Heparin Sodium/ Dextrose 250 ml @ 0 mls/hr CONT PRN IV PER PROTOCOL Last administered on 07/02/20at 02:33; Start 07/01/20 at 07:45 Heparin Sodium (Porcine) (Heparin Sodium) 2,500 unit PRN Q6HRS PRN IV FOR UFH LEVEL LESS THAN 0.2 Last administered on 07/02/20at 02:26; Start 07/01/20 at 06:45 Potassium Bicarbonate (Potassium Effervescent Tablet) 40 meq 1X ONCE PO Last administered on 07/01/20at 13:36; Start 07/01/20 at 11:45; Stop 07/01/20 at 11:46; Status DC Sodium Chloride 1,000 ml @ 75 mls/hr [id number] IV Last administered on 07/02/20at 08:39; Start 07/02/20 at 07:00 Lactobacillus Rhamnosus (Culturelle) 1 cap BID PO Last administered on 07/01/20at 21:50; Start 07/01/20 at 21:00 Lidocaine HCl (Xylocaine-Mpf 1% 2ml Vial) 2 ml STK-MED ONCE .ROUTE ; Start 07/02/20 at 07:52; Stop 07/02/20 at 07:53; Status DC Iohexol (Omnipaque 300 Mg/ml) 100 ml STK-MED ONCE .ROUTE ; Start 07/02/20 at 07:53; Stop 07/02/20 at 07:53; Status DC Heparin Sodium/ Sodium Chloride 1,500 ml @ As Directed STK-MED ONCE .ROUTE ; Start 07/02/20 at 07:53; Stop 07/02/20 at 07:53; Status DC Active Scripts Active Reported Pantoprazole Sodium (Pantoprazole Sodium) 40 Mg Tablet.dr 40 Mg PO BIDAC Losartan-Hctz 100-25 Mg Tab (Losartan/Hydrochlorothiazide) 1 Each Tablet 1 Tab PO DAILY Allergies Allergies: Coded Allergies: No Known Drug Allergies (Unverified , 02/17/20) ROS General: YES: Fatigue Cardiovascular: yes Chest Pain Physical Exam General: No acute distress HEENT: Atraumatic Lungs: Clear to auscultation Heart: Regular rate Abdomen: Normal bowel sounds Vitals VITALS Vital Signs Date Time Temp Pulse Resp B/P (MAP) Pulse Ox O2 Delivery O2 Flow Rate FiO2 07/02/20 07:00 97.9 104 18 137/89 (105) 94 Room Air 97.9 Labs Labs Laboratory Tests Test 07/01/20 01:15 07/01/20 04:00 07/01/20 04:10 07/01/20 05:50 White Blood Count 17.2 x10^3/uL (4.0-11.0) 16.5 x10^3/uL (4.0-11.0) Red Blood Count 4.76 x10^6/uL (4.30-5.70) 4.88 x10^6/uL (4.30-5.70) Hemoglobin 13.9 g/dL (13.0-17.5) 14.2 g/dL (13.0-17.5) Hematocrit 41.3 % (39.0-53.0) 42.3 % (39.0-53.0) Mean Corpuscular Volume 87 fL (79-100) 87 fL (79-100) Mean Corpuscular Hemoglobin 29 pg (25-35) 29 pg (25-35) Mean Corpuscular Hemoglobin Concent 34 g/dL (31-37) 34 g/dL (31-37) Red Cell Distribution Width 13.9 % (11.5-14.5) 14.2 % (11.5-14.5) Platelet Count 258 x10^3/uL (140-400) 258 x10^3/uL (140-400) Neutrophils (%) (Auto) 66 % (31-73) 60 % (31-73) Lymphocytes (%) (Auto) 27 % (24-48) 32 % (24-48) Monocytes (%) (Auto) 6 % (0-9) 6 % (0-9) Eosinophils (%) (Auto) 1 % (0-3) 1 % (0-3) Basophils (%) (Auto) 1 % (0-3) 1 % (0-3) Neutrophils # (Auto) 11.3 x10^3/uL (1.8-7.7) 9.9 x10^3/uL (1.8-7.7) Lymphocytes # (Auto) 4.7 x10^3/uL (1.0-4.8) 5.2 x10^3/uL (1.0-4.8) Monocytes # (Auto) 1.0 x10^3/uL (0.0-1.1) 1.0 x10^3/uL (0.0-1.1) Eosinophils # (Auto) 0.1 x10^3/uL (0.0-0.7) 0.2 x10^3/uL (0.0-0.7) Basophils # (Auto) 0.1 x10^3/uL (0.0-0.2) 0.2 x10^3/uL (0.0-0.2) Sodium Level 146 mmol/L (136-145) 146 mmol/L (136-145) Potassium Level 3.1 mmol/L (3.5-5.1) 3.3 mmol/L (3.5-5.1) Chloride Level 106 mmol/L (98-107) 107 mmol/L (98-107) Carbon Dioxide Level 29 mmol/L (21-32) 31 mmol/L (21-32) Anion Gap 11 (6-14) 8 (6-14) Blood Urea Nitrogen 19 mg/dL (8-26) 18 mg/dL (8-26) Creatinine 1.3 mg/dL (0.7-1.3) 1.2 mg/dL (0.7-1.3) Estimated GFR (Cockcroft-Gault) 57.5 63.1 BUN/Creatinine Ratio 15 (6-20) Glucose Level 167 mg/dL (70-99) 100 mg/dL (70-99) Lactic Acid Level 2.5 mmol/L (0.4-2.0) 1.2 mmol/L (0.4-2.0) Calcium Level 8.6 mg/dL (8.5-10.1) 8.4 mg/dL (8.5-10.1) Total Bilirubin 0.3 mg/dL (0.2-1.0) Aspartate Amino Transf (AST/SGOT) 71 U/L (15-37) Alanine Aminotransferase (ALT/SGPT) 79 U/L (16-63) Alkaline Phosphatase 37 U/L (46-116) Troponin I Quantitative 11.678 ng/mL (0.000-0.055) 12.670 ng/mL (0.000-0.055) 13.088 ng/mL (0.000-0.055) SU-Mjx-G-Type Natriuretic Peptide 8954 pg/mL (0-124) Total Protein 6.3 g/dL (6.4-8.2) Albumin 3.3 g/dL (3.4-5.0) Albumin/Globulin Ratio 1.1 (1.0-1.7) Procalcitonin < 0.10 ng/mL (0.00-0.10) < 0.10 ng/mL (0.00-0.10) Coronavirus (PCR) Not detected (Not Detected) SARS-CoV-2 Antigen (Rapid) Negative (NEGATIVE) Magnesium Level 2.1 mg/dL (1.8-2.4) Triglycerides Level 141 mg/dL (0-150) Cholesterol Level 199 mg/dL (0-200) LDL Cholesterol, Calculated 129 mg/dL (0-100) VLDL Cholesterol, Calculated 28 mg/dL (0-40) Non-HDL Cholesterol Calculated 157 mg/dL (0-129) HDL Cholesterol 42 mg/dL (40-60) Cholesterol/HDL Ratio 4.7 Test 07/01/20 10:50 07/01/20 20:00 07/02/20 01:30 Heparin Anti-Xa Act, Unfractionated 0.73 IU/mL (0.30-0.70) 0.40 IU/mL (0.30-0.70) < 0.10 IU/mL (0.30-0.70) White Blood Count 11.8 x10^3/uL (4.0-11.0) Red Blood Count 4.55 x10^6/uL (4.30-5.70) Hemoglobin 13.4 g/dL (13.0-17.5) Hematocrit 39.8 % (39.0-53.0) Mean Corpuscular Volume 87 fL (79-100) Mean Corpuscular Hemoglobin 30 pg (25-35) Mean Corpuscular Hemoglobin Concent 34 g/dL (31-37) Red Cell Distribution Width 14.2 % (11.5-14.5) Platelet Count 251 x10^3/uL (140-400) Neutrophils (%) (Auto) 51 % (31-73) Lymphocytes (%) (Auto) 39 % (24-48) Monocytes (%) (Auto) 7 % (0-9) Eosinophils (%) (Auto) 3 % (0-3) Basophils (%) (Auto) 1 % (0-3) Neutrophils # (Auto) 6.0 x10^3/uL (1.8-7.7) Lymphocytes # (Auto) 4.5 x10^3/uL (1.0-4.8) Monocytes # (Auto) 0.9 x10^3/uL (0.0-1.1) Eosinophils # (Auto) 0.3 x10^3/uL (0.0-0.7) Basophils # (Auto) 0.1 x10^3/uL (0.0-0.2) Sodium Level 143 mmol/L (136-145) Potassium Level 3.5 mmol/L (3.5-5.1) Chloride Level 105 mmol/L (98-107) Carbon Dioxide Level 29 mmol/L (21-32) Anion Gap 9 (6-14) Blood Urea Nitrogen 15 mg/dL (8-26) Creatinine 1.1 mg/dL (0.7-1.3) Estimated GFR (Cockcroft-Gault) 69.8 Glucose Level 88 mg/dL (70-99) Calcium Level 8.2 mg/dL (8.5-10.1) Laboratory Tests Test 07/01/20 10:50 07/01/20 20:00 07/02/20 01:30 Heparin Anti-Xa Act, Unfractionated 0.73 IU/mL (0.30-0.70) 0.40 IU/mL (0.30-0.70) < 0.10 IU/mL (0.30-0.70) White Blood Count 11.8 x10^3/uL (4.0-11.0) Red Blood Count 4.55 x10^6/uL (4.30-5.70) Hemoglobin 13.4 g/dL (13.0-17.5) Hematocrit 39.8 % (39.0-53.0) Mean Corpuscular Volume 87 fL (79-100) Mean Corpuscular Hemoglobin 30 pg (25-35) Mean Corpuscular Hemoglobin Concent 34 g/dL (31-37) Red Cell Distribution Width 14.2 % (11.5-14.5) Platelet Count 251 x10^3/uL (140-400) Neutrophils (%) (Auto) 51 % (31-73) Lymphocytes (%) (Auto) 39 % (24-48) Monocytes (%) (Auto) 7 % (0-9) Eosinophils (%) (Auto) 3 % (0-3) Basophils (%) (Auto) 1 % (0-3) Neutrophils # (Auto) 6.0 x10^3/uL (1.8-7.7) Lymphocytes # (Auto) 4.5 x10^3/uL (1.0-4.8) Monocytes # (Auto) 0.9 x10^3/uL (0.0-1.1) Eosinophils # (Auto) 0.3 x10^3/uL (0.0-0.7) Basophils # (Auto) 0.1 x10^3/uL (0.0-0.2) Sodium Level 143 mmol/L (136-145) Potassium Level 3.5 mmol/L (3.5-5.1) Chloride Level 105 mmol/L (98-107) Carbon Dioxide Level 29 mmol/L (21-32) Anion Gap 9 (6-14) Blood Urea Nitrogen 15 mg/dL (8-26) Creatinine 1.1 mg/dL (0.7-1.3) Estimated GFR (Cockcroft-Gault) 69.8 Glucose Level 88 mg/dL (70-99) Calcium Level 8.2 mg/dL (8.5-10.1) Assessment/Plan Assessment/Plan 1. Non-ST elevated myocardial infarction. Initial presentation as above. Peak troponin of 13.08. No reported chest pain. Continue on heparin. At this time different options were discussed with the patient. I have recommended cardiac catheterization. Risks and benefits were discussed. We will continue present medications and proceed with cardiac catheterization in the morning. If he has recurrent pain or other abnormalities would proceed with catheterization earlier. 2. Gastroesophageal reflux disease. Episodes of epigastric pain as above and EGD performed last week. Continue baseline medications. 3. Hyperlipidemia. LDL of 129. Will start statins. 4. Tobacco abuse. Counseled patient on tobacco discontinuation. Thank you for allowing us to participate in the care of your patient. ALBA MONTOYA MD Jul 02, 2020 09:19
[2020-07-02] MEDS ORDERED: LIDOCAINE 1% Multi-Dose 20 ML VIAL. ONE (10:18)
[2020-07-02] MEDS ORDERED: fentaNYL PF VIAL 100 MCG/2 ML VIAL ONE (10:23)
[2020-07-02] MEDS ORDERED: MIDAZOLAM HCL/PF 2 MG/2 ML VIAL. ONE ×2 (10:23→10:36)
--- NOTE | 2020-07-02 10:27 | PDOC ---
MODERATE SEDATION ASSESSMENT RISKS/ALTERNATIVES Risks/Alternatives Risks and alternatives of this type of sedation and procedure discussed with: RISK/ALTERNATIVES: Patient H & P ON CHART H & P H & P on chart and reviewed for co-morbid conditions and appropriate labs. H&P ON CHART: Yes STATUS PREG STATUS ASSESSED: N/A MEDS/ALLERGIES REVIEWED Meds/Allergies Reviewed Medications and Allergies including time and route of recently administered narcotics and sedatives. MEDS/ALLERGIES REVIEWED: Yes ASA RATING ASA RATING: II AIRWAY ASSESSMENT Airway Assessment Airway patency, oral function limitations, presence of caps, crowns, dentures, partials, and ability to extend neck assessed. AIRWAY ASSESSMENT: Yes MALLAMPATI SCORE MALLAMPATI SCORE: II PRE-SEDATION ASSESSMENT PRE-SEDATION ASSESSMENT: Yes ALBA MONTOYA MD Jul 02, 2020 10:27
[2020-07-02] MEDS ORDERED: MIDAZOLAM HCL/PF 2 MG/2 ML VIAL. IV ONE (11:00)
[2020-07-02] MEDS ORDERED: fentaNYL PF VIAL 100 MCG/2 ML VIAL IV ONE (11:00)
[2020-07-02] MEDS ORDERED: IOHEXOL 300 MG/ML 100ML VIAL. IART ONE (11:00)
[2020-07-02] MEDS ORDERED: LIDOCAINE 1% Multi-Dose 20 ML VIAL. INJ ONE (11:00)
[2020-07-02] MEDS ORDERED: IV NORMAL SALINE 1000ML BAG 1,000 ML IV SCH (11:23)
[2020-07-02] MEDS ORDERED: NITROGLYCERIN SUBLINGUAL 0.4 MG BOTTLE OF 25. SL PRN (11:30)
--- NOTE | 2020-07-02 12:05 | CARD ---
MR#: [id number] Date of Study: 07/02/2020 Ordering Physician: ALBA GILMORE, Referring Physician: ALBA GILMORE, Tech: EMERSON LEE RTR APPROVED REPORT Procedures Left heart catheterization Left ventriculogram Selective coronary angiogram The patient is a 54-year-old male whose had several months of occasional chest discomfort. Approxima tely a day and a half ago the patient had more episodes of chest pain which was increased. His EKG s howed no acute ST elevation but his initial troponin was 2 and has gradually increased to 13. He has had no further chest pain. Different options were discussed with the patient including the risks an d benefits of heart catheterization. The patient has given consent to proceed with cardiac catheteri zation. After informed consent was obtained he was brought to the heart catheterization lab. The area of the right femoral artery was prepared in the usual manner with Betadine, sterile draping and local anest hetic. An 18-gauge needle was used to enter the right femoral artery, a wire placed and a 6 Slovenian s dee dee placed over the wire. A 6 Slovenian JL4 diagnostic catheter was used to engage the left coronary system and sequential injections of various views were obtained. A 6 Slovenian Kiko right diagnosti c catheter was used to engage the right coronary artery and a single injection was performed. A pigt ail catheter was advanced in the left ventricle. Pressures were obtained. A 30 degree DEVINE left vent riculogram was performed. Pullback pressures were measured. The catheter was removed from the patie nt. All catheter exchanges were over a J-wire. Injection the sheath showed normal placement. The s dee dee was removed and sealed with an Angio-Seal product. The patient was we will moved to the [facility] in stable condition. Findings. Hemodynamics. LV pressure of 96/12, 28. Aortic root pressure of 96/64. Coronaries. Left main. The left main was a normal size vessel with a distal 10% lesion. Left anterior descending. The left anterior descending was a moderate size vessel. It had a proxima l 95% lesion involving the origin of the first diagonal. It had a long mid to distal lesion of 50 to 60%. The first diagonal had a mid 90% lesion. Left circumflex. The left circumflex was a moderate size vessel. It had a proximal 80% lesion. In a long mid to distal lesion of greater than 90%. Right coronary artery. The right coronary had a proximal total occlusion with collateralization from both the vessel itself and from the left system. Left ventriculogram. The left ventricle had moderately decreased LV systolic function. It had global hypokinesis with an ejection fraction estimated at 35 to 40%. <Conclusion> Severe three-vessel coronary artery disease. Moderately decreased LV systolic function. Will refer patient for coronary artery bypass surgery consideration. Signed by : Alba Gilmore MD Electronically Approved : 07/02/2020 12:05:17
--- NOTE | 2020-07-02 14:02 | PDOC ---
[employer] PROGRESS NOTE Date of Service DOS: DATE: 07/02/20 TIME: 14:00 Chief Complaint Chief Complaint NSTEMI (non-ST elevated myocardial infarction) - heparin GTT after therapeutic lovenox overnight. slight ST depressions in lead I, V4, implying inferior and lateral strain. Trop >10. Cardiology consulted Acute respiratory distress - seems to be related to NH. No O2 requirements, no risk factors for PE. Rapid COVID 19 negative Abnormal CXR - given smoking history likely COPD, possibly ILD component with BNP 8954 and ok renal function likely acute CHF from acute NH LORI - likely vasomotor nephropathy from acute coronary syndrome, will limit IVF. Monitor, no nephrotoxic meds Hypertension - Hold HCTZ for hypokalemia, hold ARB for LORI Tobacco abuse - counseled on cessation Obesity - counseled on lifestyle modification Leukocytosis - unlikely bacterial pneumonia, this seems stress induced from likely NH GERD - cont PPI PUD - recent treatment for h. pylori FEN - NPO PPX - heparin GTT FULL CODE Dispo - CVC History of Present Illness History of Present Illness 07/02/2020 Afebrile, no acute events overnight. Patient taken to [facility] this morning. Received report from primary nurse stating patient will need to have bypass done. Pending further evaluation from cardiothoracic surgery. Patient's chart, labs, images were reviewed and discussed with RN 54 yo M w/ PMHx smoker, obesity who presents for substernal chest pain. Onset was 06/30 in the morning while at rest without any known provocation/inciting event and/or trauma. Nothing known makes better or worse. Pain is substernal, 9 out of 10 in severity, and radiates to left jaw. Describes it as a dull crushing pressure. Patient reports intermittent occurrences of a different type of chest pain for past 3 months. He has been getting this worked up in outpatient setting with primary care physician and recently had a EGD 06/29/2020 for which he tested n egative for Covid and ultimately had a negative EGD. But did have PUD treated 1 month prior with h. pylori testing positive. He has never had a cardiac stress test previously. He smokes, is being treated for GERD and hypertension, and has a significant family history of cardiac disease. Patient does disclose that in the past 6 months he has gained approximately 25 to 30 pounds. He has had increased dyspnea with exertion and has been sleeping propped up recently as he often feels that he is gasping for air in the middle of the night. Admits diaphoresis, lightheadedness, chills, shortness of breath during chest pain episodes, intermittent left jaw and upper extremity numbness, nausea, and palpitations. Denies fever, falls, abdominal pain, vomiting or diarrhea, changes in bladder or bowel function, no hemoptysis, no excessive alcohol or any illicit drug use, no long distance travel. 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 Vitals/I&O Vitals/I&O: Vital Signs Date Time Temp Pulse Resp B/P (MAP) Pulse Ox O2 Delivery O2 Flow Rate FiO2 07/02/20 11:17 79 14 94 Nasal Cannula 3.0 07/02/20 11:00 98.4 120/78 (92) 98.4 I & O 07/01/20 07/01/20 07/02/20 15:00 23:00 07:00 Output Total 600 ml Balance -600 ml Physical Exam General: No acute distress Heart: Regular rate Abdomen: Normal bowel sounds Extremities: No clubbing, No cyanosis, No edema, Normal pulses, No tenderness/swelling Skin: No rashes, No breakdown, No significant lesion Labs Labs: Laboratory Tests Test 07/01/20 20:00 07/02/20 01:30 Heparin Anti-Xa Act, Unfractionated 0.40 IU/mL (0.30-0.70) < 0.10 IU/mL (0.30-0.70) White Blood Count 11.8 x10^3/uL (4.0-11.0) Red Blood Count 4.55 x10^6/uL (4.30-5.70) Hemoglobin 13.4 g/dL (13.0-17.5) Hematocrit 39.8 % (39.0-53.0) Mean Corpuscular Volume 87 fL (79-100) Mean Corpuscular Hemoglobin 30 pg (25-35) Mean Corpuscular Hemoglobin Concent 34 g/dL (31-37) Red Cell Distribution Width 14.2 % (11.5-14.5) Platelet Count 251 x10^3/uL (140-400) Neutrophils (%) (Auto) 51 % (31-73) Lymphocytes (%) (Auto) 39 % (24-48) Monocytes (%) (Auto) 7 % (0-9) Eosinophils (%) (Auto) 3 % (0-3) Basophils (%) (Auto) 1 % (0-3) Neutrophils # (Auto) 6.0 x10^3/uL (1.8-7.7) Lymphocytes # (Auto) 4.5 x10^3/uL (1.0-4.8) Monocytes # (Auto) 0.9 x10^3/uL (0.0-1.1) Eosinophils # (Auto) 0.3 x10^3/uL (0.0-0.7) Basophils # (Auto) 0.1 x10^3/uL (0.0-0.2) Sodium Level 143 mmol/L (136-145) Potassium Level 3.5 mmol/L (3.5-5.1) Chloride Level 105 mmol/L (98-107) Carbon Dioxide Level 29 mmol/L (21-32) Anion Gap 9 (6-14) Blood Urea Nitrogen 15 mg/dL (8-26) Creatinine 1.1 mg/dL (0.7-1.3) Estimated GFR (Cockcroft-Gault) 69.8 Glucose Level 88 mg/dL (70-99) Calcium Level 8.2 mg/dL (8.5-10.1) Comment Review of Relevant I have reviewed the following items bobby (where applicable) has been applied. Medications: Current Medications Medications (Trade) Dose Ordered Sig/Skyler Route PRN Reason Start Time Stop Time Status Last Admin Dose Admin Sodium Chloride 1,000 ml @ 75 mls/hr [id number] IV 07/02/20 07:00 07/02/20 08:39 Lactobacillus Rhamnosus (Culturelle) 1 cap BID PO 07/01/20 21:00 07/01/20 21:50 Heparin Sodium/ Sodium Chloride (HEPARIN for ARTERIAL LINE FLUSH) 1,000 unit 1X ONCE IART 07/02/20 11:00 07/02/20 11:01 DC 07/02/20 11:00 Heparin Sodium/ Sodium Chloride (HEPARIN for ARTERIAL LINE FLUSH) 1,000 unit 1X ONCE IART 07/02/20 11:00 07/02/20 11:01 DC 07/02/20 11:00 Midazolam HCl (Versed) 3 mg 1X ONCE IV 07/02/20 11:00 07/02/20 11:01 DC 07/02/20 10:30 Fentanyl Citrate (Fentanyl 2ml Vial) 37.5 mcg 1X ONCE IV 07/02/20 11:00 07/02/20 11:01 DC 07/02/20 10:30 Iohexol (Omnipaque 300 Mg/ml) 114 ml 1X ONCE IART 07/02/20 11:00 07/02/20 11:01 DC 07/02/20 11:00 Lidocaine HCl (Lidocaine 1% 20ml Vial) 18 ml 1X ONCE INJ 07/02/20 11:00 07/02/20 11:01 DC 07/02/20 11:00 Justifications for Admission Other Justification RODOLFO BRAGA MD Jul 02, 2020 14:01
[2020-07-02] MEDS: LACTOBACILLUS RHAMNOSUS GG 1 CAPSULE. PO SCH ×2 (14:10→20:56)
[2020-07-02] MEDS: AZITHROMYCIN 250 MG TABLET. PO SCH (14:10)
--- NOTE | 2020-07-02 15:47 | NUR ---
VAL following for discharge planning. VAL spoke with RN and reviewed chart. Pt from home. Pt currently on room air, IV Rocephin, COVID negative. Pt NPO. Pt to have heart cath today with potential discharge home tomorrow, 07/03. Pt to discharge home, self-care. VAL following as needed. Addendum: 07/03/20 at 1051 by MILY NEAL Pt transferred to . JAVI Faust to follow.
--- NOTE | 2020-07-02 16:35 | NUR ---
Wound Care Pt has rash from poison herve, pt has order for hydrocortisone cream. RN will check into getting pt steroids. no open wounds noted. WC will followup for possible changes.
[2020-07-02] MEDS ORDERED: CALAMINE/ZINC OXIDE TOPICAL SUSPENSION 177ML BOTTLE. TP PRN (20:30)
[2020-07-03 02:53] VITALS: BP 134/81
[2020-07-03] MEDS: IV NORMAL SALINE 1000ML BAG 1,000 ML IV SCH ×3 (05:43→23:00)
[2020-07-03 07:00] VITALS: BP 151/102
[2020-07-03] MEDS: LACTOBACILLUS RHAMNOSUS GG 1 CAPSULE. PO SCH ×2 (08:36→20:31)
[2020-07-03] MEDS: AZITHROMYCIN 250 MG TABLET. PO SCH (08:36)
[2020-07-03] MEDS ORDERED: methylPREDNISolone 4 MG TABLET. PO SCH ×2 (09:00→18:15)
[2020-07-03] MEDS: cefTRIAXone IV Push 1 GM VIAL. IVP SCH (09:00)
--- NOTE | 2020-07-03 10:17 | PDOC ---
PROGRESS NOTES Date of Service: DATE: 07/03/20 TIME: 10:16 Chief Complaint Chief Complaint IMPRESSION NSTEMI (non-ST elevated myocardial infarction) - heparin GTT after therapeutic lovenox overnight. slight ST depressions in lead I, V4, implying inferior and lateral strain. Trop >10. Cardiology consulted Acute respiratory distress - seems to be related to [place]. No O2 requirements, no risk factors for PE. Rapid COVID 19 negative Abnormal CXR - given smoking history likely COPD, possibly ILD component with BNP 8954 and ok renal function likely acute CHF from acute FL LORI - likely vasomotor nephropathy from acute coronary syndrome, will limit IVF. Monitor, no nephrotoxic meds Hypertension - Hold HCTZ for hypokalemia, hold ARB for LORI Tobacco abuse - counseled on cessation Obesity - counseled on lifestyle modification Leukocytosis - unlikely bacterial pneumonia, this seems stress induced from likely FL GERD - cont PPI PUD - recent treatment for h. pylori PLAN PPX - heparin GTT FULL CODE Dispo - CVC Severe three-vessel coronary artery disease. Moderately decreased LV systolic function. refer patient for coronary artery bypass surgery consideration. 38 MIN PT EXAM, CHART review, > 50% of time spent with exam, chart review, pt care coordination History of Present Illness History of Present Illness 07/03/2020 Afebrile, no acute events overnight. Received report from primary nurse stating patient will need to have bypass done. Pending further evaluation from cardiothoracic surgery. Patient's chart, labs, images were reviewed and di scussed with RN 54 yo M w/ PMHx smoker, obesity who presents for substernal chest pain. Onset was 06/30 in the morning while at rest without any known provocation/inciting event and/or trauma. Nothing known makes better or worse. Pain is substernal, 9 out of 10 in severity, and radiates to left jaw. Describes it as a dull crushing pressure. Patient reports intermittent occurrences of a different type of chest pain for past 3 months. He has been getting this worked up in outpatient setting with primary care physician and recently had a EGD 06/29/2020 for which he tested negative for Covid and ultimately had a negative EGD. But did have PUD treated 1 month prior with h. pylori testing positive. He has never had a cardiac stress test previously. He smokes, is being treated for GERD and hypertension, and has a significant family history of cardiac disease. Patient does disclose that in the past 6 months he has gained approximately 25 to 30 pounds. He has had increased dyspnea with exertion and has been sleeping propped up recently as he often feels that he is gasping for air in the middle of the night. Admits diaphoresis, lightheadedness, chills, shortness of breath during chest pain episodes, intermittent left jaw and upper extremity numbness, nausea, and palpitations. Denies fever, falls, abdominal pain, vomiting or diarrhea, changes in bladder or bowel function, no hemoptysis, no excessive alcohol or any illicit drug use, no long distance travel. 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 Vitals Vitals Vital Signs Date Time Temp Pulse Resp B/P (MAP) Pulse Ox O2 Delivery O2 Flow Rate FiO2 07/03/20 07:00 97.5 89 18 151/102 (118) 96 Room Air 97.5 07/02/20 11:17 3.0 Physical Exam General: Alert, Oriented X3, Cooperative, No acute distress Heart: Regular rate, Normal S1 Lungs: Clear Abdomen: Normal bowel sounds, Soft, No tenderness Extremities: No clubbing, No cyanosis, No edema, Normal pulses, No tenderness/swelling Skin: No rashes, No breakdown, No significant lesion Labs LABS Procedures Left heart catheterization Left ventriculogram Selective coronary angiogram The patient is a 54-year-old male whose had several months of occasional chest discomfort. Approximately a day and a half ago the patient had more episodes of chest pain which was increased. His EKG showed no acute ST elevation but his initial troponin was 2 and has gradually increased to 13. He has had no further chest pain. Different options were discussed with the patient including the risks and benefits of heart catheterization. The patient has given consent to proceed with cardiac catheterization. After informed consent was obtained he was brought to the heart catheterization lab. The area of the right femoral artery was prepared in the usual manner with Betadine, sterile draping and local anesthetic. An 18-gauge needle was used to enter the right femoral artery, a wire placed and a 6 Armenian sheath placed over the wire. A 6 Armenian JL4 diagnostic catheter was used to engage the left coronary system and sequential injections of various views were obtained. A 6 Armenian Kiko right diagnostic catheter was used to engage the right coronary artery and a single injection was performed. A pigtail catheter was advanced in the left ventricle. Pressures were obtained. A 30 degree DEVINE left ventriculogram was performed. Pullback pressures were measured. The catheter was removed from the patient. All catheter exchanges were over a J-wire. Injection the sheath showed normal placement. The sheath was removed and sealed with an Angio-Seal product. The patient was we will moved to the holding area in stable condition. Findings. Hemodynamics. LV pressure of 96/12, 28. Aortic root pressure of 96/64. Coronaries. Left main. The left main was a normal size vessel with a distal 10% lesion. Left anterior descending. The left anterior descending was a moderate size vessel. It had a proximal 95% lesion involving the origin of the first diagonal. It had a long mid to distal lesion of 50 to 60%. The first diagonal had a mid 90% lesion. Left circumflex. The left circumflex was a moderate size vessel. It had a proximal 80% lesion. In a long mid to distal lesion of greater than 90%. Right coronary artery. The right coronary had a proximal total occlusion with collateralization from both the vessel itself and from the left system. Left ventriculogram. The left ventricle had moderately decreased LV systolic function. It had global hypokinesis with an ejection fraction estimated at 35 to 40%. <Conclusion> Severe three-vessel coronary artery disease. Moderately decreased LV systolic function. Will refer patient for coronary artery bypass surgery consideration. Signed by : Alba Gilmore MD Electronically Approved : 07/02/2020 12:05:17 DICTATED and SIGNED BY: ALBA GILMORE MD PATIENT: RUKHSANA SHARPE ACCOUNT: [id number] : 1965 LOCATION: [facility] MRI AGE: 54 SEX: M EXAM STATUS: REG CLI ORD. PHYSICIAN: YOLI FOWLER MD REASON: NERVE SHEATH TUMOR PROCEDURE: LUMBAR SPINE WO/W CONTRAST EXAMINATION: Magnetic resonance imaging (MRI) of the lumbar spine with and without contrast 03/05/2020 9:30 AM HISTORY: Nerve sheath tumor TECHNIQUE: Multiplanar multi-weighted MRI of the lumbar spine was performed with and without intravenous contrast using the standard lumbar spine protocol. Contrast information: Gadolinium based contrast. COMPARISON: MRI lumbar spine 11/16/2019 FINDINGS: The alignment of the lumbar spine is normal. Vertebral bodies demonstrate normal signal intensity on all sequences. There are no compression fractures. The conus medullaris terminates at the level of L1. The distal spinal cord signal intensity is normal. There is disc desiccation and mild disc height loss at L4-L5 and L5-S1. Annular fissures identified at L5-S1 with vacuum disc phenomenon . Limited views of the abdomen and pelvis show no soft tissue abnormality. The aorta is normal. No suspicious enhancement is identified. L1-L2: The disc is normal in configuration. There is no facet arthropathy. There is no neuroforaminal stenosis. There is no spinal canal stenosis. L2-L3: The disc is normal in configuration. There is no facet arthropathy. There is no neuroforaminal stenosis. There is no spinal canal stenosis. L3-L4: The disc is normal in configuration. There is no facet arthropathy. There is no neuroforaminal stenosis. There is no spinal canal stenosis. L4-L5: Mild disc bulge asymmetric to the right with right far lateral disc protrusion, stable. Mild facet arthropathy. Mild to moderate bilateral neuroforaminal stenosis. No significant spinal canal stenosis. L5-S1: Disc bulge with central disc protrusion. There is mild facet arthropathy. There is moderate neuroforaminal stenosis. There is no spinal canal stenosis. IMPRESSION: Mild degenerative changes of the lumbar spine as described in detail above. No suspicious peripheral nerve sheath tumor identified on provided images. Findings at L4-L5 vertebral level most favor a right far lateral disc protrusion which could affect the exited nerve. Electronically signed by: Dolores Yan MD (03/05/2020 11:53 AM) [facility] DICTATED and SIGNED BY: DOLORES YAN MD DATE: 03/05/20 1153 AP chest x-ray HISTORY: Pneumonia. FINDINGS: Comparison is made to chest x-ray June 30, 2020. Heart size normal. Mediastinal silhouette is normal. No pneumothorax. No pleural effusions. Coarse interstitial markings at the perihilar lungs and lung bases are stable. Bones unremarkable. IMPRESSION: Stable pulmonary interstitial infiltrates may indicate atypical infection including viral pneumonitis or interstitial lung disease. Electronically signed by: Dilshad Dietz MD (07/01/2020 11:03 AM) [id number] DICTATED and SIGNED BY: DILSHAD DIETZ MD Comment Review of Relevant I have reviewed the following items bobby (where applicable) has been applied. Labs Laboratory Tests Test 07/01/20 10:50 07/01/20 20:00 07/02/20 01:30 Heparin Anti-Xa Act, Unfractionated 0.73 IU/mL (0.30-0.70) 0.40 IU/mL (0.30-0.70) < 0.10 IU/mL (0.30-0.70) White Blood Count 11.8 x10^3/uL (4.0-11.0) Red Blood Count 4.55 x10^6/uL (4.30-5.70) Hemoglobin 13.4 g/dL (13.0-17.5) Hematocrit 39.8 % (39.0-53.0) Mean Corpuscular Volume 87 fL (79-100) Mean Corpuscular Hemoglobin 30 pg (25-35) Mean Corpuscular Hemoglobin Concent 34 g/dL (31-37) Red Cell Distribution Width 14.2 % (11.5-14.5) Platelet Count 251 x10^3/uL (140-400) Neutrophils (%) (Auto) 51 % (31-73) Lymphocytes (%) (Auto) 39 % (24-48) Monocytes (%) (Auto) 7 % (0-9) Eosinophils (%) (Auto) 3 % (0-3) Basophils (%) (Auto) 1 % (0-3) Neutrophils # (Auto) 6.0 x10^3/uL (1.8-7.7) Lymphocytes # (Auto) 4.5 x10^3/uL (1.0-4.8) Monocytes # (Auto) 0.9 x10^3/uL (0.0-1.1) Eosinophils # (Auto) 0.3 x10^3/uL (0.0-0.7) Basophils # (Auto) 0.1 x10^3/uL (0.0-0.2) Sodium Level 143 mmol/L (136-145) Potassium Level 3.5 mmol/L (3.5-5.1) Chloride Level 105 mmol/L (98-107) Carbon Dioxide Level 29 mmol/L (21-32) Anion Gap 9 (6-14) Blood Urea Nitrogen 15 mg/dL (8-26) Creatinine 1.1 mg/dL (0.7-1.3) Estimated GFR (Cockcroft-Gault) 69.8 Glucose Level 88 mg/dL (70-99) Calcium Level 8.2 mg/dL (8.5-10.1) Medications Current Medications Azithromycin (Zithromax) 250 mg DAILY PO Last administered on 07/03/20at 08:36; Start 07/01/20 at 09:00; Stop 07/04/20 at 09:00 Ceftriaxone Sodium (Rocephin) 1 gm Q24H IVP Last administered on 07/02/20at 08:39; Start 07/01/20 at 09:00; Stop 07/04/20 at 09:00 Tramadol HCl (Ultram) 50 mg PRN Q6HRS PRN PO MODERATE PAIN Last administered on 07/02/20at 20:57; Start 07/01/20 at 00:00 Ondansetron HCl (Zofran) 4 mg PRN Q6HRS PRN IVP NAUSEA/VOMITING; Start 07/01/20 at 00:00 Al Hydroxide/Mg Hydroxide (Mylanta Plus Xs) 30 ml PRN Q3HRS PRN PO HEARTBURN / GAS; Start 07/01/20 at 00:00 Calcium Carbonate/ Glycine (Tums) 500 mg PRN Q3HRS PRN PO UPSET STOMACH; Start 07/01/20 at 00:00 Zolpidem Tartrate (Ambien) 5 mg PRN QHS PRN PO INSOMNIA, MAY REPEAT IN 1HR; Start 07/01/20 at 00:00 Morphine Sulfate (Morphine Sulfate) 1 mg PRN Q1HR PRN IV PAIN; Start 07/01/20 at 00:00 Morphine Sulfate (Morphine Sulfate) 2 mg PRN Q1HR PRN IV PAIN; Start 07/01/20 at 00:00 Acetaminophen (Tylenol) 650 mg PRN Q6HRS PRN PO Headaches, Temp > 101.5F; Start 07/01/20 at 00:00 Ibuprofen (Motrin) 400 mg PRN Q6HRS PRN PO MILD PAIN 1-3; Start 07/01/20 at 00:00; Status Hold Magnesium Hydroxide (Milk Of Magnesia) 2,400 mg PRN Q12HR PRN PO CONSTIPATION; Start 07/01/20 at 00:00 Bisacodyl (Dulcolax Supp) 10 mg PRN DAILY PRN AL CONSTIPATION; Start 07/01/20 at 00:00 Enoxaparin Sodium (Lovenox 40mg Syringe) 40 mg Q24H SQ Last administered on 07/01/20at 01:25; Start 07/01/20 at 00:00; Stop 07/01/20 at 06:21; Status DC Fentanyl Citrate (Fentanyl 2ml Vial) 50 mcg PRN Q2HR PRN IVP PAIN; Start 07/01/20 at 00:00 Non-Formulary Medication (Losartan/ Hydrochlorothiazide (Losartan-Hctz 100-25 Mg Tab)) 1 tab DAILY PO ; Start 07/01/20 at 09:00; Status UNV Labetalol HCl (Normodyne Iv Push) 20 mg PRN Q2HR PRN IVP HYPERTENSION; Start 07/01/20 at 00:15 Losartan Potassium (Cozaar) 100 mg DAILY PO ; Start 07/01/20 at 09:00; Status Hold Enalaprilat (Vasotec Inj) 1.25 mg PRN Q6HRS PRN IVP HYPERTENSION; Start 07/01/20 at 00:15 Hydrochlorothiazide (Hydrodiuril) 25 mg DAILY PO ; Start 07/01/20 at 09:00; Status Hold Hydrocortisone (Cortaid) 1 flakito TID TP ; Start 07/01/20 at 09:00; Stop 07/01/20 at 02:45; Status DC Hydrocortisone (Cortaid) 1 flakito PRN TID PRN TP ITCHING Last administered on 07/01/20at 18:27; Start 07/01/20 at 02:45 Enoxaparin Sodium (Lovenox 100mg Syringe) 100 mg Q12HR SQ ; Start 07/01/20 at 09:00; Stop 07/01/20 at 06:52; Status DC Sodium Chloride 1,000 ml @ 1,000 mls/hr 1X ONCE IV Last administered on 07/01/20at 13:36; Start 07/01/20 at 06:30; Stop 07/01/20 at 07:29; Status DC Heparin Sodium/ Dextrose 250 ml @ 0 mls/hr CONT PRN IV PER PROTOCOL Last administered on 07/02/20at 02:33; Start 07/01/20 at 07:45 Heparin Sodium (Porcine) (Heparin Sodium) 2,500 unit PRN Q6HRS PRN IV FOR UFH LEVEL LESS THAN 0.2 Last administered on 07/02/20at 02:26; Start 07/01/20 at 06:45 Potassium Bicarbonate (Potassium Effervescent Tablet) 40 meq 1X ONCE PO Last administered on 07/01/20at 13:36; Start 07/01/20 at 11:45; Stop 07/01/20 at 11:46; Status DC Sodium Chloride 1,000 ml @ 75 mls/hr [id number] IV Last administered on 07/03/20at 05:43; Start 07/02/20 at 07:00 Lactobacillus Rhamnosus (Culturelle) 1 cap BID PO Last administered on at 08:36; Start 07/01/20 at 21:00 Lidocaine HCl (Xylocaine-Mpf 1% 2ml Vial) 2 ml STK-MED ONCE .ROUTE ; Start 07/02/20 at 07:52; Stop 07/02/20 at 07:53; Status DC Iohexol (Omnipaque 300 Mg/ml) 100 ml STK-MED ONCE .ROUTE ; Start 07/02/20 at 07:53; Stop 07/02/20 at 07:53; Status DC Heparin Sodium/ Sodium Chloride 1,500 ml @ As Directed STK-MED ONCE .ROUTE ; Start 07/02/20 at 07:53; Stop 07/02/20 at 07:53; Status DC Lidocaine HCl (Lidocaine 1% 20ml Vial) 20 ml STK-MED ONCE .ROUTE ; Start 07/02/20 at 10:18; Stop 07/02/20 at 10:18; Status DC Fentanyl Citrate (Fentanyl 2ml Vial) 100 mcg STK-MED ONCE .ROUTE ; Start 07/02/20 at 10:23; Stop 07/02/20 at 10:23; Status DC Midazolam HCl (Versed) 2 mg STK-MED ONCE .ROUTE ; Start 07/02/20 at 10:23; Stop 07/02/20 at 10:24; Status DC Midazolam HCl (Versed) 2 mg STK-MED ONCE .ROUTE ; Start 07/02/20 at 10:36; Stop 07/02/20 at 10:36; Status DC Heparin Sodium/ Sodium Chloride (HEPARIN for ARTERIAL LINE FLUSH) 1,000 unit 1X ONCE IART Last administered on 07/02/20at 11:00; Start 07/02/20 at 11:00; Stop 07/02/20 at 11:01; Status DC Heparin Sodium/ Sodium Chloride (HEPARIN for ARTERIAL LINE FLUSH) 1,000 unit 1X ONCE IART Last administered on 07/02/20at 11:00; Start 07/02/20 at 11:00; Stop 07/02/20 at 11:01; Status DC Midazolam HCl (Versed) 3 mg 1X ONCE IV Last administered on 07/02/20at 10:30; Start 07/02/20 at 11:00; Stop 07/02/20 at 11:01; Status DC Fentanyl Citrate (Fentanyl 2ml Vial) 37.5 mcg 1X ONCE IV Last administered on 07/02/20at 10:30; Start 07/02/20 at 11:00; Stop 07/02/20 at 11:01; Status DC Iohexol (Omnipaque 300 Mg/ml) 114 ml 1X ONCE IART Last administered on 07/02/20at 11:00; Start 07/02/20 at 11:00; Stop 07/02/20 at 11:01; Status DC Lidocaine HCl (Lidocaine 1% 20ml Vial) 18 ml 1X ONCE INJ Last administered on 07/02/20at 11:00; Start 07/02/20 at 11:00; Stop 07/02/20 at 11:01; Status DC Sodium Chloride 1,000 ml @ 60 mls/hr [id number] IV ; Start 07/02/20 at 11:23; Stop 07/02/20 at 17:22; Status DC Nitroglycerin (Nitrostat) 0.4 mg PRN Q5MIN PRN SL CHEST PAIN; Start 07/02/20 at 11:30 Calamine (Calamine Lotion) 1 flakito PRN Q2HRS PRN TP ITCHING Last administered on 07/02/20at 20:57; Start 07/02/20 at 20:30 Active Scripts Active Reported Pantoprazole Sodium (Pantoprazole Sodium) 40 Mg Tablet.dr 40 Mg PO BIDAC Losartan-Hctz 100-25 Mg Tab (Losartan/Hydrochlorothiazide) 1 Each Tablet 1 Tab PO DAILY Vitals/I & O Vital Sign - Last 24 Hours 11/2/20 11/2/20 11/2/20 11/2/20 10:30 11:00 11:17 11:25 Temp 98.4 98.4 Pulse 87 79 89 Resp 14 19 14 B/P (MAP) 120/78 (92) 112/75 (87) Pulse Ox 94 98 94 O2 Delivery Nasal Cannula Room Air Nasal Cannula O2 Flow Rate 3.0 3.0 07/02/20 07/02/20 07/02/20 07/02/20 11:40 11:55 12:02 12:30 Pulse 74 74 78 91 B/P (MAP) 122/78 (93) 135/88 (104) 120/78 (92) 140/82 (101) 07/02/20 07/02/20 07/02/20 07/02/20 13:00 13:25 14:00 15:30 Temp 97.9 97.9 Pulse 80 91 91 82 Resp 19 B/P (MAP) 113/66 (82) 140/82 (101) 119/74 (89) 123/77 (92) Pulse Ox 96 O2 Delivery Room Air 07/02/20 07/02/20 07/02/20 07/02/20 16:15 17:00 19:00 20:00 Temp 98.0 98.6 98.0 98.6 Pulse 91 84 Resp 20 20 B/P (MAP) 131/88 (102) 145/91 (109) Pulse Ox 96 99 O2 Delivery Room Air Room Air Room Air Room Air 07/02/20 07/02/20 07/02/20 07/03/20 20:57 21:57 22:51 02:53 Temp 98.0 98.0 98.0 98.0 Pulse 95 78 Resp 22 22 B/P (MAP) 143/81 (101) 134/81 (98) Pulse Ox 99 99 98 97 O2 Delivery Room Air Room Air Room Air Room Air 07/03/20 07:00 Temp 97.5 97.5 Pulse 89 Resp 18 B/P (MAP) 151/102 (118) Pulse Ox 96 O2 Delivery Room Air Intake and Output 07/02/20 07/02/20 07/03/20 15:00 23:00 07:00 Intake Total 960 ml 1929 ml Output Total 300 ml Balance 960 ml 1629 ml Justicifation of Admission Dx: Justifications for Admission: Justification of Admission Dx: Yes CHF: Hemodynamic Instability Angina: New-Onset Comments: severe 3 vessel cad FULBRIGHT,EKTA W MD Jul 03, 2020 10:17
[2020-07-03 11:00] VITALS: BP 147/92
--- NOTE | 2020-07-03 11:47 | CARD ---
MR#: [id number] Date of Study: 07/03/2020 Ordering Physician: AVANI SALES, Referring Physician: AVANI SALES, Tech: Whitley Corbin LUIGI APPROVED REPORT EXAM: Two-dimensional and M-mode echocardiogram with Doppler and color Doppler. Other Information Quality : Good INDICATION Non STEMI 2D DIMENSIONS Left Atrium(2D)3.3 (1.6-4.0cm)IVSd1.0 (0.7-1.1cm) Aortic Root(2D)3.0 (2.0-3.7cm)LVDd6.3 (3.9-5.9cm) LVOT Diameter2.0 (1.8-2.4cm)PWd0.7 (0.7-1.1cm) LVDs4.4 (2.5-4.0cm)FS (%) 29.3 % SV109.5 ml Aortic Valve AoV Peak Blane.140.1cm/sAoV VTI25.3cm AO Peak GR.7.8mmHgLVOT Peak Blane.131.8cm/s AO Mean GR.4mmHgAVA (VMAX)2.91cm2 ELIZABETH (VTI)2.80cm2 Mitral Valve MV E Jsdaldeh29.0cm/sMV DECEL [id number] MV A Wybqrlzb971.5cm/sE/A Ratio0.7 Tricuspid Valve TR P. Capkyiev811ip/sRAP [id number] TR Peak Gr.99xrRkCHFI10vcKh Pulmonary Vein S1 Youwnqbx53.6cm/sD2 Ifrqdqqw89.4cm/s LEFT VENTRICLE The Left Ventricle is mildly dilated. There is normal left ventricular wall thickness. Left ventricle systolic function is mildly impaired. The Ejection Fraction is estimated at 40%. There is moderate h ypokinesis in the mid-anteroseptal, mid septal and apical septal foster. Transmitral Doppler flow trino bernadette is Grade I-abnormal relaxation pattern. RIGHT VENTRICLE The right ventricle is normal size. The right ventricular systolic function is normal. ATRIA The left atrium size is normal. The right atrium size is normal. The interatrial septum is intact wit h no evidence for an atrial septal defect or patent foramen ovale as noted on 2-D or Doppler imaging. AORTIC VALVE The aortic valve is normal in structure and function. Doppler and Color Flow revealed no significant aortic regurgitation. There is no significant aortic valvular stenosis. MITRAL VALVE The mitral valve is normal in structure and function. There is no evidence of mitral valve prolapse. There is no mitral valve stenosis. Doppler and Color-flow revealed mild mitral regurgitation. TRICUSPID VALVE The tricuspid valve is normal in structure and function. Doppler and Color Flow revealed trace to mil d tricuspid regurgitation. There is mild pulmonary hypertension. The PA pressure was estimated at 38 mmHg. There is no tricuspid valve stenosis. PULMONIC VALVE The pulmonic valve is not well visualized. Doppler and Color Flow revealed no pulmonic valvular regur gitation. There is no pulmonic valvular stenosis. GREAT VESSELS The aortic root is normal in size. The ascending aorta is normal in size. The IVC is normal in size a nd collapses >50% with inspiration. PERICARDIAL EFFUSION There is no evidence of significant pericardial effusion. Critical Notification Critical Value: No <Conclusion> The Left Ventricle is mildly dilated. Left ventricle systolic function is mildly impaired. The Ejection Fraction is estimated at 40%. There is moderate hypokinesis in the mid-anteroseptal, mid septal and apical septal foster. Doppler and Color Flow revealed no significant aortic regurgitation. There is no significant aortic valvular stenosis. Doppler and Color-flow revealed mild mitral regurgitation. Doppler and Color Flow revealed trace to mild tricuspid regurgitation. There is mild pulmonary hypertension. The PA pressure was estimated at 38 mmHg. Signed by : Demetrio Gilmore MD Electronically Approved : 07/03/2020 11:47:11
[2020-07-03 11:54] LABS: BASO % 0 % (0-3); EOS # 0.4 x10^3/uL (0.0-0.7); EOS % 4 % (0-3); HEMATOCRIT 40.8 % (39.0-53.0); HEMOGLOBIN 13.8 g/dL (13.0-17.5); LYMPH # 3.3 x10^3/uL (1.0-4.8); LYMPH % 29 % (24-48); MEAN CORPUSCULAR HEMOGLOBIN 29 pg (25-35); MEAN CORPUSCULAR HGB CONC 34 g/dL (31-37); MEAN CORPUSCULAR VOLUME 87 fL (79-100); MONO # 0.9 x10^3/uL (0.0-1.1); MONO % 8 % (0-9); NEUT # 6.6 x10^3/uL (1.8-7.7); NEUT % 59 % (31-73); PLATELET COUNT 256 x10^3/uL (140-400); RED BLOOD COUNT 4.71 x10^6/uL (4.30-5.70); RED CELL DISTRIBUTION WIDTH 14.2 % (11.5-14.5); WHITE BLOOD COUNT 11.3 x10^3/uL (4.0-11.0)
[2020-07-03 12:16] LABS: CALCIUM 8.7 mg/dL (8.5-10.1); GFR 77.9; POTASSIUM 3.2 mmol/L (3.5-5.1)
--- NOTE | 2020-07-03 12:19 | RAD ---
MR#: [id number] Date of Study: 07/03/2020 Ordering Physician: PINKY RODRIGUEZ, Referring Physician: PINKY RODRIGUEZ, Tech: APPROVED REPORT Patient Location: IN-PATIENT Laterality:Bilateral Indications Dizziness and Vertigo Risk Factors Hypertension: TIA/CVA History Smoking Medications Heparin Doppler Spectral Velocity Analysis Right Left pCCA 85/17 cm/spCCA 82/15 cm/s mCCA 95/20 cm/smCCA 69/16 cm/s dCCA 74/20 cm/sdCCA 49/13 cm/s ECA 143/ cm/sECA 127/ cm/s pICA 70/20 cm/spICA 57/23 cm/s Francis 77/23 cm/smICA 48/19 cm/s dICA 79/35 cm/sdICA 43/18 cm/s ICA/CCA 0.83ICA/CCA 0.70 Findings Grayscale images reveal mild intimal hyperplasia throughout the carotid vasculature. On the right and left side spectral waveforms and color Doppler are grossly within normal limits with velocities in the normal range. Normal ICA to CCA ratios. Vertebral velocities are antegrade. No critical carotid occlusive disease is noted. Mild to moderate bilateral external carotid vascular disease. Critical Notification Critical Value: No <Conclusion> 1. No significant carotid occlusive disease bilaterally Signed by : Ricki Monae, Electronically Approved : 07/03/2020 12:19:27
--- NOTE | 2020-07-03 12:22 | RAD ---
MR#: [id number] Date of Study: 07/03/2020 Ordering Physician: PINKY RODRIGUEZ, Referring Physician: PINKY RODRIGUEZ, Tech: APPROVED REPORT Patient Location: IN-PATIENT Indications pre-op CABG Vein Measurements Great Saphenous Small Saphenous RightLeft RightLeft Saph-Fem. Junction 5.80mm7.80mmProximal 1.70mm2.30mm Mid Thigh 3.50mm2.60mmMid 1.40mm1.50mm Distal Thigh 2.70mm2.40mmDistal Proximal Calf 2.10mm2.60mm Mid Calf 2.30mm2.20mm Distal Calf 3.10mm1.90mm Findings Dimensions of the bilateral small saphenous veins are noted as above. The small saphenous veins were difficult to visualized and small in caliber as noted. The bilateral greater saphenous veins are patent and have dimensions as noted above. Overall, the gr eater saphenous veins appear to be adequate bypass conduits. Critical Notification Critical Value: No <Conclusion> 1. Patent bilateral greater saphenous veins with dimensions as noted above 2. Small caliber bilateral lesser saphenous veins with limited visualization. Signed by : Ricki Monae, Electronically Approved : 07/03/2020 12:21:47
--- NOTE | 2020-07-03 13:10 | NUR ---
SS following for discharge planning. SS reviewed pt chart and discussed with pt RN. Pt is currently on room air. COVID19 negative. Pt on IV Rocephin. Pt needing CABG. SS was notified by Cardiology that Dr. Horner would like to do surgery on 07/05/2020 at [facility] SS contacted [facility] transfer team as requested, ; fax [phone], and spoke with Roney. SS was notified that the surgeon provided misinformation to our Cardiology team. She reported that [facility] is now on full transfer closure. She reported that [facility] was also on full transfer closure and [facility] was going on full transfer closure as of today. She reported that given the situation she would contact all the hospitals in network and would see where pt could possibly be placed for surgery. She reported that she would try to find pt a bed at one of the hospitals but it may not be the same surgical team as requested. SS notified Nery MUIR, and notified. Nery speaking with Dr. Loya and will contact SS with more information. SS faxed clinical information to [facility] transfer center as requested. SS will continue to follow for discharge planning.
[2020-07-03 15:00] VITALS: BP 119/68
[2020-07-03] MEDS ORDERED: POTASSIUM CHLORIDE 20 MEQ TABLET.ER. PO ONE (15:30)
--- NOTE | 2020-07-03 15:42 | PDOC ---
CARDIO Progress Notes Date and Time Date of Service 07/03/20 Time of Evaluation 1215 Subjective Subjective: No Chest Pain, No shortness of breath, No Palpitations Vitals Vitals Vital Signs Date Time Temp Pulse Resp B/P (MAP) Pulse Ox O2 Delivery O2 Flow Rate FiO2 07/03/20 11:00 98.0 88 18 147/92 (110) 94 Room Air 98.0 07/02/20 11:17 3.0 Weight Weight [ ] Input and Output Intake and Output Intake and Output 07/03/20 07:00 Intake Total 2889 ml Output Total 300 ml Balance 2589 ml Intake Oral 1360 ml IV Total 1529 ml Output Urine Total 300 ml # Voids 3 Laboratory Labs Laboratory Tests Test 07/03/20 11:10 White Blood Count 11.3 x10^3/uL (4.0-11.0) Red Blood Count 4.71 x10^6/uL (4.30-5.70) Hemoglobin 13.8 g/dL (13.0-17.5) Hematocrit 40.8 % (39.0-53.0) Mean Corpuscular Volume 87 fL (79-100) Mean Corpuscular Hemoglobin 29 pg (25-35) Mean Corpuscular Hemoglobin Concent 34 g/dL (31-37) Red Cell Distribution Width 14.2 % (11.5-14.5) Platelet Count 256 x10^3/uL (140-400) Neutrophils (%) (Auto) 59 % (31-73) Lymphocytes (%) (Auto) 29 % (24-48) Monocytes (%) (Auto) 8 % (0-9) Eosinophils (%) (Auto) 4 % (0-3) Basophils (%) (Auto) 0 % (0-3) Neutrophils # (Auto) 6.6 x10^3/uL (1.8-7.7) Lymphocytes # (Auto) 3.3 x10^3/uL (1.0-4.8) Monocytes # (Auto) 0.9 x10^3/uL (0.0-1.1) Eosinophils # (Auto) 0.4 x10^3/uL (0.0-0.7) Basophils # (Auto) 0.0 x10^3/uL (0.0-0.2) Sodium Level 142 mmol/L (136-145) Potassium Level 3.2 mmol/L (3.5-5.1) Chloride Level 105 mmol/L (98-107) Carbon Dioxide Level 30 mmol/L (21-32) Anion Gap 7 (6-14) Blood Urea Nitrogen 10 mg/dL (8-26) Creatinine 1.0 mg/dL (0.7-1.3) Estimated GFR (Cockcroft-Gault) 77.9 Glucose Level 104 mg/dL (70-99) Calcium Level 8.7 mg/dL (8.5-10.1) Physical Exam HEENT: Neck Supple W Full Motion Chest: Symmetric LUNGS: Clear to Auscultation Heart: S1S2, RRR Abdomen: Soft N/T Extremities: No Edema Neurology: alert, oriented, follow commands Assessment Assessment 1. NSTEMI 2. CAD; cath noted with 3VD. 3. Chronic systolic CHF with ICM; LVEF 40%. appears compensated 4. Hyperlipidemia 5. GERD 6. Tobaccoism 7. Hypokalemia Recommendations Start ASA/statin therapy Add metoprolol Plan to transfer to [facility] for evaluation for possible CABG Discussed/encourage smoking cessation Justicifation of Admission Dx: Justifications for Admission: Justification of Admission Dx: Yes CHF: Hemodynamic Instability Angina: New-Onset PINKY RODRIGUEZ APRN Jul 03, 2020 15:42
[2020-07-03] MEDS: ASPIRIN ENTERIC COATED 81 MG TABLET.DR. PO SCH (17:39)
[2020-07-03 19:30] VITALS: BP 134/87
[2020-07-03] MEDS ORDERED: methylPREDNISolone 4 MG TABLET. PO ONE (19:30)
[2020-07-03] MEDS ORDERED: ATORVASTATIN CALCIUM 40 MG TABLET. PO SCH (21:00)
[2020-07-03 23:00] VITALS: BP 128/90
[2020-07-04 02:34] VITALS: BP 110/58
[2020-07-04 06:00] LABS: CALCIUM 8.9 mg/dL (8.5-10.1); GFR 77.9; POTASSIUM 4.2 mmol/L (3.5-5.1)
[2020-07-04 06:20] LABS: BASO % 0 % (0-3); EOS % 0 % (0-3); HEMATOCRIT 40.7 % (39.0-53.0); HEMOGLOBIN 13.6 g/dL (13.0-17.5); LYMPH # 1.3 x10^3/uL (1.0-4.8); LYMPH % 14 % (24-48); MEAN CORPUSCULAR HEMOGLOBIN 29 pg (25-35); MEAN CORPUSCULAR HGB CONC 34 g/dL (31-37); MEAN CORPUSCULAR VOLUME 87 fL (79-100); MONO # 0.1 x10^3/uL (0.0-1.1); MONO % 1 % (0-9); NEUT # 8.1 x10^3/uL (1.8-7.7); NEUT % 85 % (31-73); PLATELET COUNT 277 x10^3/uL (140-400); RED BLOOD COUNT 4.66 x10^6/uL (4.30-5.70); RED CELL DISTRIBUTION WIDTH 14.2 % (11.5-14.5); WHITE BLOOD COUNT 9.5 x10^3/uL (4.0-11.0)
[2020-07-04 07:00] VITALS: BP 132/79
[2020-07-04] MEDS: LACTOBACILLUS RHAMNOSUS GG 1 CAPSULE. PO SCH (08:18)
[2020-07-04] MEDS: ASPIRIN ENTERIC COATED 81 MG TABLET.DR. PO SCH (08:18)
[2020-07-04] MEDS: AZITHROMYCIN 250 MG TABLET. PO SCH (08:18)
[2020-07-04] MEDS ORDERED: methylPREDNISolone 4 MG TABLET. PO SCH ×2 (08:30→21:00)
[2020-07-04] MEDS ORDERED: METOPROLOL SUCC 24HR ER 25 MG TAB.ER.24H. PO SCH (09:00)
[2020-07-04] MEDS ORDERED: LISINOPRIL 10 MG TABLET PO SCH (09:00)
--- NOTE | 2020-07-04 09:19 | PDOC ---
PINKY RODRIGUEZ AIRFRAME AND POWERPLANT TECHNICIAN 07/04/20 0919: CARDIO Progress Notes Date and Time Date of Service 07/04/20 Time of Evaluation 1010 Subjective Subjective: No Chest Pain, No shortness of breath, No Palpitations Vitals Vitals Vital Signs Date Time Temp Pulse Resp B/P (MAP) Pulse Ox O2 Delivery O2 Flow Rate FiO2 07/04/20 08:18 74 110/58 07/04/20 07:00 97.9 19 95 Room Air 97.9 07/03/20 20:00 3.0 Weight Weight [ ] Input and Output Intake and Output Intake and Output 07/04/20 07:00 Intake Total 1700 ml Balance 1700 ml Intake Oral 1700 ml # Voids 3 # Bowel Movements 1 Laboratory Labs Laboratory Tests Test 07/03/20 11:10 07/04/20 05:00 White Blood Count 11.3 x10^3/uL (4.0-11.0) 9.5 x10^3/uL (4.0-11.0) Red Blood Count 4.71 x10^6/uL (4.30-5.70) 4.66 x10^6/uL (4.30-5.70) Hemoglobin 13.8 g/dL (13.0-17.5) 13.6 g/dL (13.0-17.5) Hematocrit 40.8 % (39.0-53.0) 40.7 % (39.0-53.0) Mean Corpuscular Volume 87 fL (79-100) 87 fL (79-100) Mean Corpuscular Hemoglobin 29 pg (25-35) 29 pg (25-35) Mean Corpuscular Hemoglobin Concent 34 g/dL (31-37) 34 g/dL (31-37) Red Cell Distribution Width 14.2 % (11.5-14.5) 14.2 % (11.5-14.5) Platelet Count 256 x10^3/uL (140-400) 277 x10^3/uL (140-400) Neutrophils (%) (Auto) 59 % (31-73) 85 % (31-73) Lymphocytes (%) (Auto) 29 % (24-48) 14 % (24-48) Monocytes (%) (Auto) 8 % (0-9) 1 % (0-9) Eosinophils (%) (Auto) 4 % (0-3) 0 % (0-3) Basophils (%) (Auto) 0 % (0-3) 0 % (0-3) Neutrophils # (Auto) 6.6 x10^3/uL (1.8-7.7) 8.1 x10^3/uL (1.8-7.7) Lymphocytes # (Auto) 3.3 x10^3/uL (1.0-4.8) 1.3 x10^3/uL (1.0-4.8) Monocytes # (Auto) 0.9 x10^3/uL (0.0-1.1) 0.1 x10^3/uL (0.0-1.1) Eosinophils # (Auto) 0.4 x10^3/uL (0.0-0.7) 0.0 x10^3/uL (0.0-0.7) Basophils # (Auto) 0.0 x10^3/uL (0.0-0.2) 0.0 x10^3/uL (0.0-0.2) Sodium Level 142 mmol/L (136-145) 142 mmol/L (136-145) Potassium Level 3.2 mmol/L (3.5-5.1) 4.2 mmol/L (3.5-5.1) Chloride Level 105 mmol/L (98-107) 107 mmol/L (98-107) Carbon Dioxide Level 30 mmol/L (21-32) 30 mmol/L (21-32) Anion Gap 7 (6-14) 5 (6-14) Blood Urea Nitrogen 10 mg/dL (8-26) 11 mg/dL (8-26) Creatinine 1.0 mg/dL (0.7-1.3) 1.0 mg/dL (0.7-1.3) Estimated GFR (Cockcroft-Gault) 77.9 77.9 Glucose Level 104 mg/dL (70-99) 148 mg/dL (70-99) Calcium Level 8.7 mg/dL (8.5-10.1) 8.9 mg/dL (8.5-10.1) Magnesium Level 2.2 mg/dL (1.8-2.4) 2.3 mg/dL (1.8-2.4) Physical Exam HEENT: Neck Supple W Full Motion Chest: Symmetric LUNGS: Clear to Auscultation Heart: S1S2, RRR Abdomen: Soft N/T Extremities: No Edema Neurology: alert, oriented, follow commands Assessment Assessment 1. NSTEMI 2. CAD; cath noted with 3VD. 3. Chronic systolic CHF with ICM; LVEF 40%. appears compensated 4. Hyperlipidemia 5. GERD 6. Tobaccoism 7. Hypokalemia Recommendations Start ASA/statin therapy Continue Metoprolol Transfer to [facility] today for probable CABG Discussed/encourage smoking cessation Justicifation of Admission Dx: Justifications for Admission: Justification of Admission Dx: Yes CHF: Hemodynamic Instability Angina: New-Onset ALBA MONTOYA MD 07/04/20 1735: CARDIO Progress Notes Assessment Assessment Patient seen and examined The patient is feeling well. NSTEMI. Catheterization showed three-vessel coronary disease. Moderately decreased LV function. Patient continues to be stable. Continuing on aspirin beta blockers and statins. To be transferred later today to [facility] for bypass surgery probably tomorrow. Again discussed with the patient. We will follow-up post surgery. Hyperlipidemia. On a statin. GERD Tobaccoism. Discussed. Hypokalemia. Resolved. PINKY RODRIGUEZ APRN Jul 04, 2020 09:19 ALBA MONTOYA MD Jul 04, 2020 17:35
--- NOTE | 2020-07-04 09:58 | NUR ---
SS following up with discharge planning. SS reviewed pt chart and discussed with pt RN. SS received phone contact from [facility] transfer center stating that bed came available at [facility], [address] [address], [place] [address]. Accepting physician, Dr. Grant. Bed#4100. Report to be provided to RN, Lb, at [phone]. Pt, physician, and pt's RN notified. Packet, transfer form, and ambulance form on the chart. Pt will discharge today no later than 1100 via [facility] ambulance, .
--- NOTE | 2020-07-04 10:32 | PDOC ---
[employer] PROGRESS NOTE Date of Service DOS: DATE: 07/04/20 TIME: 10:17 Chief Complaint Chief Complaint NSTEMI (non-ST elevated myocardial infarction) - heparin GTT after therapeutic lovenox overnight. slight ST depressions in lead I, V4, implying inferior and lateral strain. Trop >10. Cardiology consulted Acute respiratory distress - seems to be related to IN. No O2 requirements, no risk factors for PE. Rapid COVID 19 negative Abnormal CXR - given smoking history likely COPD, possibly ILD component with BNP 8954 and ok renal function likely acute CHF from acute IN LORI - likely vasomotor nephropathy from acute coronary syndrome, will limit IVF. Monitor, no nephrotoxic meds Hypertension - Hold HCTZ for hypokalemia, hold ARB for LORI Tobacco abuse - counseled on cessation Obesity - counseled on lifestyle modification Leukocytosis - unlikely bacterial pneumonia, this seems stress induced from likely IN GERD - cont PPI PUD - recent treatment for h. pylori PPX - heparin GTT FULL CODE Dispo - CVC Severe three-vessel coronary artery disease. Moderately decreased LV systolic function. refer patient for coronary artery bypass surgery consideration. 38 MIN PT EXAM, CHART review, > 50% of time spent with exam, chart review, pt care coordination History of Present Illness History of Present Illness 07/04/2020 Pt seen and examined. DW RN and DW case management. SOA and chess pain has improved today. No nausea, dizziness, or body aches. Pt feels that swelling and rash on arm is improving after medrol dose pack previously administered. 07/03/2020 Afebrile, no acute events overnight. Received report from primary nurse stating patient will need to have bypass done. Pending further evaluation from cardiothoracic surgery. Patient's chart, labs, images were reviewed and discussed with RN 54 yo M w/ PMHx smoker, obesity who presents for substernal chest pain. Onset was 06/30 in the morning while at rest without any known provocation/inciting event and/or trauma. Nothing known makes better or worse. Pain is substernal, 9 out of 10 in severity, and radiates to left jaw. Describes it as a dull crushing pressure. Patient reports intermittent occurrences of a different type of chest pain for past 3 months. He has been getting this worked up in outpatient setting with primary care physician and recently had a EGD 06/29/2020 for which he tested negative for Covid and ultimately had a negative EGD. But did have PUD treated 1 month prior with h. pylori testing positive. He has never had a cardiac stress test previously. He smokes, is being treated for GERD and hypertension, and has a significant family history of cardiac disease. Patient does disclose that in the past 6 months he has gained approximately 25 to 30 pounds. He has had increased dyspnea with exertion and has been sleeping propped up recently as he often feels that he is gasping for air in the middle of the night. Admits diaphoresis, lightheadedness, chills, shortness of breath during chest pain episodes, intermittent left jaw and upper extremity numbness, nausea, and palp itations. Denies fever, falls, abdominal pain, vomiting or diarrhea, changes in bladder or bowel function, no hemoptysis, no excessive alcohol or any illicit drug use, no long distance travel. 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 Vitals/I&O Vitals/I&O: Vital Signs Date Time Temp Pulse Resp B/P (MAP) Pulse Ox O2 Delivery O2 Flow Rate FiO2 07/04/20 08:18 74 110/58 07/04/20 07:00 97.9 19 95 Room Air 97.9 07/03/20 20:00 3.0 I & O 0 07/03/20 07/03/20 07/04/20 15:00 23:00 07:00 Intake Total 1000 ml 500 ml 200 ml Balance 1000 ml 500 ml 200 ml Physical Exam General: Alert, Oriented X3, Cooperative, No acute distress Heart: Regular rate, Normal S1 Lungs: Clear Abdomen: Normal bowel sounds, Soft, No tenderness Extremities: No clubbing, No cyanosis, No edema, Normal pulses, No tenderness/swelling Skin: No rashes, No breakdown, No significant lesion Labs Labs: Laboratory Tests Test 07/03/20 11:10 07/04/20 05:00 White Blood Count 11.3 x10^3/uL (4.0-11.0) 9.5 x10^3/uL (4.0-11.0) Red Blood Count 4.71 x10^6/uL (4.30-5.70) 4.66 x10^6/uL (4.30-5.70) Hemoglobin 13.8 g/dL (13.0-17.5) 13.6 g/dL (13.0-17.5) Hematocrit 40.8 % (39.0-53.0) 40.7 % (39.0-53.0) Mean Corpuscular Volume 87 fL (79-100) 87 fL (79-100) Mean Corpuscular Hemoglobin 29 pg (25-35) 29 pg (25-35) Mean Corpuscular Hemoglobin Concent 34 g/dL (31-37) 34 g/dL (31-37) Red Cell Distribution Width 14.2 % (11.5-14.5) 14.2 % (11.5-14.5) Platelet Count 256 x10^3/uL (140-400) 277 x10^3/uL (140-400) Neutrophils (%) (Auto) 59 % (31-73) 85 % (31-73) Lymphocytes (%) (Auto) 29 % (24-48) 14 % (24-48) Monocytes (%) (Auto) 8 % (0-9) 1 % (0-9) Eosinophils (%) (Auto) 4 % (0-3) 0 % (0-3) Basophils (%) (Auto) 0 % (0-3) 0 % (0-3) Neutrophils # (Auto) 6.6 x10^3/uL (1.8-7.7) 8.1 x10^3/uL (1.8-7.7) Lymphocytes # (Auto) 3.3 x10^3/uL (1.0-4.8) 1.3 x10^3/uL (1.0-4.8) Monocytes # (Auto) 0.9 x10^3/uL (0.0-1.1) 0.1 x10^3/uL (0.0-1.1) Eosinophils # (Auto) 0.4 x10^3/uL (0.0-0.7) 0.0 x10^3/uL (0.0-0.7) Basophils # (Auto) 0.0 x10^3/uL (0.0-0.2) 0.0 x10^3/uL (0.0-0.2) Sodium Level 142 mmol/L (136-145) 142 mmol/L (136-145) Potassium Level 3.2 mmol/L (3.5-5.1) 4.2 mmol/L (3.5-5.1) Chloride Level 105 mmol/L (98-107) 107 mmol/L (98-107) Carbon Dioxide Level 30 mmol/L (21-32) 30 mmol/L (21-32) Anion Gap 7 (6-14) 5 (6-14) Blood Urea Nitrogen 10 mg/dL (8-26) 11 mg/dL (8-26) Creatinine 1.0 mg/dL (0.7-1.3) 1.0 mg/dL (0.7-1.3) Estimated GFR (Cockcroft-Gault) 77.9 77.9 Glucose Level 104 mg/dL (70-99) 148 mg/dL (70-99) Calcium Level 8.7 mg/dL (8.5-10.1) 8.9 mg/dL (8.5-10.1) Magnesium Level 2.2 mg/dL (1.8-2.4) 2.3 mg/dL (1.8-2.4) Review of Systems Review of Systems: No headaches. No stomach pain. No leg pain. Assessment and Plan Assessmemt and Plan NSTEMI (non-ST elevated myocardial infarction) - heparin GTT after therapeutic lovenox overnight. slight ST depressions in lead I, V4, implying inferior and lateral strain. Trop >10. Cardiology consulted Acute respiratory distress - seems to be related to IN. No O2 requirements, no risk factors for PE. Rapid COVID 19 negative Abnormal CXR - given smoking history likely COPD, possibly ILD component with BNP 8954 and ok renal function likely acute CHF from acute IN LORI - likely vasomotor nephropathy from acute coronary syndrome, will limit IVF. Monitor, no nephrotoxic meds Hypertension - Hold HCTZ for hypokalemia, hold ARB for LORI Tobacco abuse - counseled on cessation Obesity - counseled on lifestyle modification Leukocytosis - unlikely bacterial pneumonia, this seems stress induced from likely IN GERD - cont PPI PUD - recent treatment for h. pylori Rash- past exposure to poison herve several weeks ago and rash has reappeared. Plan: Awaiting probable bypass surgery Probable transfer to [facility] today Cardiac Monitoring Medrol dose pack for poison herve Trend labs DVT ppx PT Full Code Comment Review of Relevant I have reviewed the following items bobby (where applicable) has been applied. Medications: Current Medications Medications (Trade) Dose Ordered Sig/Skyler Route PRN Reason Start Time Stop Time Status Last Admin Dose Admin Aspirin (Ecotrin) 81 mg [id number] PO 07/03/20 15:30 07/04/20 08:18 Atorvastatin Calcium (Lipitor) 40 mg QHS PO 07/03/20 21:00 07/03/20 20:31 Metoprolol Succinate (Toprol Xl) 25 mg DAILY PO 07/04/20 09:00 07/04/20 08:16 Potassium Chloride (Klor-Con) 20 meq 1X ONCE PO 07/03/20 15:30 07/03/20 15:49 DC 07/03/20 17:41 Lisinopril (Prinivil) 10 mg DAILY PO 07/04/20 09:00 07/04/20 08:18 Methylprednisolone (Medrol) 24 mg 1X ONCE PO 07/03/20 19:30 07/03/20 19:31 DC 07/03/20 20:31 Methylprednisolone (Medrol) 4 mg TIDPC PO 07/04/20 08:30 07/04/20 17:31 07/04/20 08:18 Justifications for Admission Other Justification RYAN MATHEW III DO Jul 04, 2020 10:32
[2020-07-04 11:00] VITALS: BP 122/69
[2020-07-04] MEDS ORDERED: METH4TAB2 PO (11:39)
[2020-07-04] MEDS ORDERED: ASPI-886 PO (11:48)
[2020-07-04] MEDS ORDERED: METO-239 PO (11:48)
[2020-07-04] MEDS ORDERED: LISI10TA2 PO (11:49)
[2020-07-05] MEDS ORDERED: methylPREDNISolone 4 MG TABLET. PO SCH (09:00)
[2020-07-06] MEDS ORDERED: methylPREDNISolone 4 MG TABLET. PO SCH (09:00)
[2020-07-07] MEDS ORDERED: methylPREDNISolone 4 MG TABLET. PO SCH (09:00)
[2020-07-08] MEDS ORDERED: methylPREDNISolone 4 MG TABLET. PO SCH (09:00)
== END 2020-07-04 11:40 | disposition short-term general hospital (02) | DRG 280 ==
LOC: 6 SOUTH 23:11 → 2 NORTH 07-02 16:15
PROVIDERS: ADMIT Family Medicine; ATTEND Family Medicine
PROC: 4A023N7 Measurement of Cardiac Sampling and Pressure, Left Heart, Percutaneous Approach (ICD-10-PCS; principal; 2020-07-02)
PROC: B2151ZZ Fluoroscopy of Left Heart using Low Osmolar Contrast (ICD-10-PCS; 2020-07-02)
PROC: B2111ZZ Fluoroscopy of Multiple Coronary Arteries using Low Osmolar Contrast (ICD-10-PCS; 2020-07-02)
DX: I21.4 Non-ST elevation (NSTEMI) myocardial infarction (principal); N17.0 Acute kidney failure with tubular necrosis; I50.22 Chronic systolic (congestive) heart failure; E66.9 Obesity, unspecified; E78.5 Hyperlipidemia, unspecified; E87.6 Hypokalemia; F17.210 Nicotine dependence, cigarettes, uncomplicated; I11.0 Hypertensive heart disease with heart failure; I25.10 Atherosclerotic heart disease of native coronary artery without angina pectoris; J44.9 Chronic obstructive pulmonary disease, unspecified; K21.9 Gastro-esophageal reflux disease without esophagitis; K27.9 Peptic ulcer, site unspecified, unspecified as acute or chronic, without hemorrhage or perforation; Z20.828 Contact with and (suspected) exposure to other viral communicable diseases; D72.829 Elevated white blood cell count, unspecified; M47.816 Spondylosis without myelopathy or radiculopathy, lumbar region; M51.26 Other intervertebral disc displacement, lumbar region; Z82.49 Family history of ischemic heart disease and other diseases of the circulatory system; Z83.3 Family history of diabetes mellitus; Z84.1 Family history of disorders of kidney and ureter; Z68.33 Body mass index [BMI] 33.0-33.9, adult
CPT/HCPCS: 93458; G0269; 36415; 71045; 80048; 80053; 80061; 83605; 83735; 83880; 84145; 84484; 85025; 85520; 87426; 87449; 93306; 93880; 93970; 99152; 99153; 99406; C1760; C1769; C1892; J0696; J1644; J1650; J2250; J3010; J3490; J7030; J7509; Q9967; U0003; C1771; G0378